=== PATIENT | male | born 1990 | race Caucasian/White ===

== ENCOUNTER 2019-11-02 13:08 | Inpatient (IN) | payer MEDICAID, SELFPAY ==
--- NOTE | ~2019-11-02 | US_ITS ---
EXAMINATION: US right upper quadrant DATE: 11/02/2019 14:49 INDICATION: Right flank pain. Right abdominal pain. TECHNIQUE: Multiple grayscale and Doppler ultrasound images of the abdomen were obtained. COMPARISON: CT abdomen and pelvis 11/02/2019 FINDINGS: The visualized portions of the head of the pancreas are normal. The liver is normal without focal lesion. There is normal flow in main portal vein. The gallbladder is contracted. No gallstones or sonographic Pagan sign. The common duct is normal and measures 5 mm. IMPRESSION: 1. Normal right upper quadrant ultrasound. Reviewed, dictated and finalized at location A.
--- NOTE | ~2019-11-02 | CT_ITS ---
EXAMINATION: CT abdomen pelvis wo con DATE: 11/02/2019 13:45 INDICATION: Right flank pain. TECHNIQUE: Computed tomography (CT) of the abdomen and pelvis was performed without intravenous contr ast. Automated exposure control and iterative reconstruction technique were employed. The dose-length product was 248.27 mGy-cm. COMPARISON: None. FINDINGS: The visualized portions of the lung bases are clear without pneumonia or pleural effusion. The heart size is normal. No pericardial effusion. The liver, gallbladder, pancreas, adrenal glands, and kidneys are normal. There is no urolithiasis. Calcifications in the spleen are consistent with ol d granulomatous disease. The appendix is normal. There are no dilated loops of bowel. There are no pa thologically enlarged lymph nodes. There is no free intraperitoneal fluid. The bones are unremarkable . IMPRESSION: 1. No etiology for the patient's symptoms. Reviewed, dictated and finalized at location A.
--- NOTE | ~2019-11-02 | US_ITS ---
EXAMINATION: US scrotum doppler DATE: 11/02/2019 14:48 INDICATION: Bilateral testicular pain. TECHNIQUE: Grayscale and Doppler ultrasound images of the testes were obtained. COMPARISON: None. FINDINGS: The right testis measures 3.8 x 2.8 x 1.7 cm. The left testis measures 4.1 x 2.9 x 1.9 cm. There is normal vascular flow to both testes. The right epididymis is normal with normal vascular marya w. The left epididymis demonstrates an 11 mm cyst. There is no varicocele or hydrocele. IMPRESSION: 1. No etiology for the patient's symptoms. Reviewed, dictated and finalized at location A.
--- NOTE | 2019-11-02 13:17 | ED.BACK ---
HPI - Back Pain/Injury General Chief Complaint: Urogenital-Male Stated Complaint: R FLANK/ABD PAIN Time Seen by Provider: 11/02/19 13:16 Source: patient Mode of arrival: ambulatory Limitations: no limitations History of Present Illness HPI Narrative: Pt is a 29 y/o male who presents to the ED with c/o lower back pain that started yesterday and rt groin pain that started today. He states that his pain is intermittent and sharp. He reports nausea and a fever 2 nights ago, and bloating, but he denies vomiting. Pt states that he felt like he was going to pass out yesterday. Pt went to the and he was Rx Meloxicam and Tamsulosin for a possible kidney stone. He denies a H/O kidney stones. Pt also denies injuring or straining his back. MD elicited complaint: back pain Onset (ago): day(s) (1) Timing: intermittent Quality: sharp Location: lumbar spine Radiation: groin (rt) Relieving factors: none Associated symptoms: fever and other (near syncope, nausea, bloating) Treatments prior to arrival: other (tamsulosin and meloxicam) Related Data Allergies Allergy/AdvReac Type Severity Reaction Status Date / Time No Known Allergies Allergy Verified 11/02/19 13:30 Review of Systems Review of Systems: All systems reviewed & are unremarkable except as noted in HPI and below Constitutional: Constitutional: Reports fever(s) Gastrointestinal: Gastrointestinal: Reports bloating, Reports nausea and Denies vomiting Genitourinary: Genitourinary: Reports other (rt groin pain) Musculoskeletal: Musculoskeletal: Reports back pain PMFSH Past Medical History Medical History (Updated 11/02/19 @ 15:11 by Nino Casas DO) No significant past medical history Surgical History Surgical History (Updated 11/02/19 @ 13:36 by Sophia Ashby) H/O right knee surgery Social History Social History (Updated 11/02/19 @ 13:36 by Sophia Ashby) Smoking status: Never smoker Gender identity (if verbalized by the patient): Male Exam Narrative: Exam Narrative: APPEARANCE: No acute distress, nontoxic, resting in bed EYES: EOMI HEENT: Normocephalic, atraumatic, OMM RESPIRATORY: No respiratory distress Clear to auscultation bilaterally with no rhonchi wheezing or rales. CARDIOVASCULAR: Regular rate and rhythm without murmurs rubs or gallops. ABDOMINAL: Soft, nondistended, tender to palpation in the right lower quadrant, no tenderness right upper quadrant, left lower quadrant left lower quadrant, no rebound or guarding, right flank tenderness : No skin lesions, no scrotal swelling or erythema, no tenderness of the bilateral testicles, no hernia palpated MUSCULOSKELETAl: Moves all extremities. No clubbing, cyanosis or edema. NEURO: Awake and alert. Following commands, speech normal, no focal deficits SKIN:: Warm, dry. No rashes lesions or abrasions PSYCHIATRIC: Normal affect/mood, Course Course Emergency Course: Discussed with patient LFTs. He states he has been to senior living twice when he initially went to senior living he was told he had hepatitis C however the second time he went to senior living he was told that was incorrect and he did not have hepatitis C. He states he has had no outpatient treating Discussed with patient and family results of workup and diagnosis. Discussed need for admission. Patient and family understand and agree to current treatment plan Consultations Consultation #1: Discussed case with Dr. Bautista, the kiln firer helper. Agrees to consult. Date: 11/02/19 Time: 14:45 Consultation #2: Discussed case with VERONICA Zuniga for the hospitalist. Accepted admission. Date: 11/02/19 Time: 14:49 MDM - Back Pain/Injury Lab Data Result diagrams: 11/02/19 13:36 11/02/19 13:36 Labs: Lab Results 11/02/19 11/02/19 11/02/19 Range/Units 13:29 13:29 13:29 WBC (4.5-10.0) K/mm3 RBC (4.6-6.20) M/mm3 Hgb (14.0-18.0) g/dL Hct (42.0-52.0) % MCV (80-100) fl MCH (26-34) pg MCHC
--- NOTE | 2019-11-02 13:35 | PC.NURSE ---
Pt refuses IV. Informed Dr. Casas of this
[2019-11-02 13:47] LABS: Basophils Absolute Auto 0.1 K/mm3 (0.0-0.1); Basophils Percent Auto 0.7 % (0.2-1.2); Eosinophils Absolute Auto 0.1 K/mm3 (0-0.3); Eosinophils Percent Auto 0.4 % (0-4.4); Hematocrit 46.2 % (42.0-52.0); Hemoglobin 15.4 g/dL (14.0-18.0); Immature Granulocyte Absolute 0.03 K/mm3 (0.00-0.031); Immature Granulocyte Percent A 0.2 % (0-0.5); Lymphocytes Absolute Auto 8.43 K/mm3 (0.9-3.2); Lymphocytes Percent Auto 69.4 % (18.3-44.2); Mean Corpuscular HGB Conc 33.3 g/dl (32-36); Mean Corpuscular Hemoglobin 28.5 pg (26-34); Mean Corpuscular Volume 85.6 fl (80-100); Mean Platelet Volume 8.7 fl (7.4-10.4); Monocytes Absolute Auto 0.8 K/mm3 (0.1-0.6); Monocytes Percent Auto 6.2 % (2.6-8.5); Neutrophils Absolute Auto 2.8 K/mm3 (1.3-6.7); Neutrophils Percent Auto 23.1 % (45.5-73.1); Platelet Count Result 189 k/mm3 (150-375); Red Cell Distribution Width 12.7 % (11.5-14.5); White Blood Count 12.1 K/mm3 (4.5-10.0)
[2019-11-02 13:50] LABS: Add Urine Microscopic? YES; Appearance Urine Clear (Clear); Bacteria Urine Trace /hpf; Bilirubin Urine Negative (Negative); Blood Urine 1+ (Negative); Color Urine Amber (Yellow); Glucose Urine UA Negative (Negative); Ketones Urine Negative (Negative); Leukocyte Esterase Ur Negative LEU/UL (Negative); Mucus Urine Rare /lpf; Nitrate Urine Negative (Negative); Protein Urine Negative (Negative); Specific Grav Ur 1.017 (1.001-1.035); WBC Urine 0-3 /hpf
[2019-11-02 13:59] LABS: Atypical Lymphocytes Present; Platelet Estimate Adequate (Adequate)
[2019-11-02 14:03] LABS: Albumin Level 3.8 g/dL (3.5-5.1); Alkaline Phosphatase 165 U/L (38-126); Bilirubin,Total 3.2 mg/dL (0.2-1.3); Blood Urea Nitrogen 15 mg/dL (9-20); Calcium 9.1 mg/dL (8.4-10.2); Carbon Dioxide 29 mmol/L (22-30); Chloride 103 mmol/L (98-107); Estimated CRCL calculation 90 ml/min; Estimated Glomerular Filt Rate > 60; Glucose 94 mg/dL (75-110); Lipase 244 U/L (23-300); Potassium 4.3 mmol/L (3.4-5.0); Sodium 136 mmol/L (137-145)
[2019-11-02 14:17] LABS: Aspartate Amino Transferase 1287 U/L (17-59)
[2019-11-02 14:25] LABS: Alanine Aminotransferase 3633 U/L (4-50)
[2019-11-02 14:40] LABS: Acetaminophen < 10 ug/mL (10-30)
[2019-11-02 14:44] LABS: Bilirubin Direct 1.4 mg/dL (0-0.3); Bilirubin Indirect 1.1 mg/dL (0-1.1)
[2019-11-02 14:57] LABS: Creatine Kinase 36 U/L (55-170)
[2019-11-02 15:00] VITALS: BP 145/92; PULSE 70; RESP 15; O2SAT 100
[2019-11-02 15:05] LABS: Monoscreen Negative (Negative); Negative Monotest Control Negative (Negative); Positive Monotest Control Positive (Positive)
[2019-11-02 15:10] LABS: INR 1.1
[2019-11-02 15:11] LABS: Partial Thromboplastin Time 31.8 SECONDS (22.3-36.8)
--- NOTE | 2019-11-02 15:30 | PM.IMHP ---
H&P: HPI History of Present Illness Chief complaint: Abdominal pain and urinary symptoms. Narrative: Chris Waller is a 29-year-old male who presented to the emergency department earlier this afternoon for evaluation of abdominal pain and urinary symptoms. He regularly uses IV methamphetamine and heroin. Not long after using methamphetamine for the last time about 4 days ago, he began to experience side effects that had never happened to him before including significant headache and flushed face, which was scary to him. Since that time, he has felt lightheaded and dizzy on standing, reports extreme fatigue, and has been having diffuse lower back aching as well as right flank pain. He has a difficult time describing that pain, but at times it sounds like a severe ache, occasionally sharp. He was seen at a local urgent care 4 nights ago and reports a temperature of 102? at that time. He also reported feelings of incomplete bladder evacuation after urinating. His urine was reportedly positive for blood but showed no evidence of infection. He was given prescriptions for tamsulosin and meloxicam and was told that he possibly had a kidney stone. Since then, he continues to have a diffuse headache, decreased appetite, severe nausea, mild shortness of breath, and feelings of racing heart. His LFTs were markedly elevated on labs drawn in emergency department, and with further questioning he does admit that he had previously been told that he had hepatitis-C however was told shortly thereafter that he did not have hepatitis-C and he had no further testing or treatment. He denies neck ache, rhinorrhea, otalgia, odynophagia, cough, vomiting, diarrhea, and dysuria. He has not noticed scleral icterus, jaundice, and denies pruritus. No new sexual partners or new tattoos. He reports using clean needles but has shared needles in the past. No recent travel or sick contacts. Review of Systems Review of Systems: Narrative: Twelve systems were reviewed with pertinent positives and negatives as per HPI. Fever up to 102? for nights ago as detailed above. Occasional sweats. Weight has remained stable. Treated for possible chlamydia 2 weeks ago, as reportedly a previous partner had chlamydia. Tested negative for HIV several months ago. He showed no symptoms of such, however. Denies acholic stools. No history of gallbladder disease. Occasional GERD for which he will take Tums. No history of peptic ulcer. He reports pretty significant anxiety. except as documented, all other systems were reviewed and are negative. [facility] Past Medical History Medical History IV drug abuse Has regularly used IV methamphetamine and heroin for many years. Tobacco use Surgical History Surgical History H/O right knee surgery Family History Family History Grandparent Stomach cancer Grandparent Hypertension Grandparent Heart attack Social History Social History (Updated 11/02/19 @ 23:37 by Gail Last PA-C) Social History: The patient lives in [place] with his girlfriend, Kely. Designates his mother, Pamela Dyson, as his surrogate decision maker and he wishes to be a full code. He has a 10-year-old son. He smokes about a pack of cigarettes per day and has for 15 years. He drinks alcohol very rarely. He uses IV methamphetamines and heroin as detailed above. Smoking packs per day: 1 Smoking cigarettes per day: 20.0 Years smoked: 15 Smoking pack-years: 15.00 Smoking status: Current every day smoker Tobacco type: cigarettes Substance use: current Substance use type: heroin and methamphetamine Other substance usage details: meth 3 days ago, heroin 10 days ago Gender identity (if verbalized by the patient): Male Spiritual care concerns: No Meds Home Medications and Allergies Home Medications Medication Instruct
[2019-11-02 16:00] VITALS: BP 134/72; PULSE 63; RESP 16; TEMP 36.7; O2SAT 98; BMI 32.0
[2019-11-02] MEDS: SODIUM CHLORIDE 0.9% IV 1,000 ML 125 ML IV CONT ×2 (16:44→23:20)
[2019-11-02] MEDS: ALPRAZOLAM 0.25 MG TABLET PO (20:45)
[2019-11-02 21:27] VITALS: BP 139/64; PULSE 71; RESP 16; TEMP 36.4; O2SAT 99
[2019-11-02 21:38] LABS: Hepatitis B Surface Antigen Negative (Negative)
[2019-11-02 21:51] LABS: HAV RESULT Negative (Negative)
[2019-11-02 21:54] LABS: Hepatitis C Virus Antibody Reactive (Negative)
[2019-11-03 00:52] LABS: Hepatitis B Core IgM Result Negative (Negative)
[2019-11-03 05:35] VITALS: BP 115/75; PULSE 67; RESP 16; TEMP 36.5; O2SAT 99
[2019-11-03 05:54] LABS: Basophils Absolute Auto 0.1 K/mm3 (0.0-0.1); Basophils Percent Auto 0.5 % (0.2-1.2); Eosinophils Absolute Auto 0.1 K/mm3 (0-0.3); Eosinophils Percent Auto 1.4 % (0-4.4); Hematocrit 42.5 % (42.0-52.0); Hemoglobin 13.9 g/dL (14.0-18.0); Immature Granulocyte Absolute 0.03 K/mm3 (0.00-0.031); Immature Granulocyte Percent A 0.3 % (0-0.5); Lymphocytes Absolute Auto 6.48 K/mm3 (0.9-3.2); Lymphocytes Percent Auto 69.6 % (18.3-44.2); Mean Corpuscular HGB Conc 32.7 g/dl (32-36); Mean Corpuscular Hemoglobin 28.2 pg (26-34); Mean Corpuscular Volume 86.2 fl (80-100); Mean Platelet Volume 9.1 fl (7.4-10.4); Monocytes Absolute Auto 0.6 K/mm3 (0.1-0.6); Monocytes Percent Auto 6.6 % (2.6-8.5); Neutrophils Percent Auto 21.6 % (45.5-73.1); Platelet Count Result 193 k/mm3 (150-375); Red Blood Count 4.93 M/mm3 (4.6-6.20); Red Cell Distribution Width 13.2 % (11.5-14.5); White Blood Count 9.3 K/mm3 (4.5-10.0)
[2019-11-03 05:55] LABS: Prothrombin Time 13.2 Seconds (11.1-14.7)
[2019-11-03 05:56] LABS: Partial Thromboplastin Time 31.1 SECONDS (22.3-36.8)
--- NOTE | 2019-11-03 06:06 | PC.NURSE ---
Per day RN 11/01: pt was bladder scanned before and after urinating right around shift change. Pt had 200 in his bladder prior to urinating and had 12 in his bladder after urinating. Will try to do again this AM.
[2019-11-03 06:32] LABS: Albumin Level 3.2 g/dL (3.5-5.1)
[2019-11-03 06:33] LABS: Alkaline Phosphatase 138 U/L (38-126); Aspartate Amino Transferase 719 U/L (17-59); Bilirubin,Total 2.3 mg/dL (0.2-1.3); Blood Urea Nitrogen 14 mg/dL (9-20); Calcium 8.4 mg/dL (8.4-10.2); Carbon Dioxide 27 mmol/L (22-30); Chloride 104 mmol/L (98-107); Estimated CRCL calculation 110 ml/min; Estimated Glomerular Filt Rate > 60; Glucose 114 mg/dL (75-110); Potassium 4.1 mmol/L (3.4-5.0); Sodium 138 mmol/L (137-145)
[2019-11-03 06:58] LABS: Alanine Aminotransferase 2461 U/L (4-50)
[2019-11-03 07:01] LABS: Platelet Estimate Adequate (Adequate)
[2019-11-03 07:02] LABS: Atypical Lymphocytes Present
[2019-11-03] MEDS: ALPRAZOLAM 0.25 MG TABLET PO ×3 (07:32→17:06)
[2019-11-03] MEDS: SODIUM CHLORIDE 0.9% IV 1,000 ML 125 ML IV CONT ×2 (07:33→15:54)
[2019-11-03 08:43] VITALS: PULSE 72; RESP 16; O2SAT 99
[2019-11-03] MEDS: BISACODYL 5 MG TABLET EC PO (08:43)
--- NOTE | 2019-11-03 11:45 | WPDGICN ---
Assessment and Plan Assessment and plan (1) Elevated LFTs: Code(s): R94.5 - Abnormal results of liver function studies Status: Acute Assessment and Plan: Elevated LFTs most suspicious for hepatitis. Repeat hepatitis serology in progress. It is possible the degree of elevation of these LFTs is related to brief episode of hypotension. Plan is to monitor LFTs closely. Laboratory workup will be obtained. Imaging does not show any obvious etiology for the elevation of liver function test. At present will allow diet continue supportive care. (2) IV drug abuse: Code(s): F19.10 - Other psychoactive substance abuse, uncomplicated Status: Acute (3) Hepatitis: Code(s): K75.9 - Inflammatory liver disease, unspecified Status: Acute GI Consult Note Consult date/time: 11/03/19 11:45 HPI: Chris Waller is a 29 year old male seen in consult at the request of the emergency room. Patient reports abdominal bloating. Right flank pain with some radiation to his testicle described. He reports having some blood in his urine within the last week. In the emergency room laboratory testing revealed profound elevation of serum transaminases. Patient's past history is significant for false positive HCV. He was found to have negative HCV on DNA polymerase testing, this was noted while incarcerated 1-1/2 years ago. Patient denies any known exposure to hepatitis. He he does have previous tattoos. He admits to heroin use. Patient denies alcohol intake. Family history is noncontributory. He denies any recent travel. He is on no medications. He states he did feel very lightheaded and weak several days ago when asked if he ever had low blood pressure. He has noticed yellow jaundice 0 of his eyes over the last 3 days. His urine has become darker. He noticed blood in his urine 3 days ago. Review of Systems Review of Systems: All systems reviewed & are unremarkable except as noted in HPI and below PMFSH Past Medical History Medical History IV drug abuse Has regularly used IV methamphetamine and heroin for many years. Tobacco use Surgical History Surgical History H/O right knee surgery Family History Family History Grandparent Stomach cancer Grandparent Hypertension Grandparent Heart attack Social History Social History (Updated 11/02/19 @ 23:37 by Gail Last PA-C) Social History: The patient lives in [place] with his girlfriend, Kely. Designates his mother, Pamela Dyson, as his surrogate decision maker and he wishes to be a full code. He has a 10-year-old son. He smokes about a pack of cigarettes per day and has for 15 years. He drinks alcohol very rarely. He uses IV methamphetamines and heroin as detailed above. Smoking packs per day: 1 Smoking cigarettes per day: 20.0 Years smoked: 15 Smoking pack-years: 15.00 Smoking status: Current every day smoker Tobacco type: cigarettes Substance use: current Substance use type: heroin and methamphetamine Other substance usage details: meth 3 days ago, heroin 10 days ago Gender identity (if verbalized by the patient): Male Spiritual care concerns: No Meds Home Medications and Allergies Home Medications Medication Instructions Recorded Confirmed Type No Home Medications 11/02/19 11/02/19 History Allergies Allergy/AdvReac Type Severity Reaction Status Date / Time No Known Allergies Allergy Verified 11/02/19 13:30 Vital Signs Vital Signs - 24 hr 11/02/19 15:00 11/02/19 16:00 11/02/19 21:27 Temperature 36.7 C 36.4 C Pulse Rate 70 63 71 Respiratory Rate 15 16 16 Blood Pressure 145/92 H 134/72 139/64 Pulse Oximetry 100 98 99 11/03/19 05:35 11/03/19 08:43 Temperature 36.5 C Pulse Rate 67 72 Respiratory Rate 16 16 Blood Pressure 115/75 Pulse Oximetry 99 99
[2019-11-03 13:58] LABS: Albumin Level 3.4 g/dL (3.5-5.1); Alkaline Phosphatase 145 U/L (38-126); Aspartate Amino Transferase 652 U/L (17-59); Bilirubin Direct 0.4 mg/dL (0-0.3); Bilirubin,Total 2.2 mg/dL (0.2-1.3)
[2019-11-03 14:00] VITALS: BP 147/72; PULSE 66; RESP 18; TEMP 36.2; O2SAT 100
[2019-11-03 14:19] LABS: Alanine Aminotransferase 2335 U/L (4-50)
--- NOTE | 2019-11-03 14:33 | PM.IMPN ---
Progress Note: A&P Assessment and Plan (1) Hepatitis: Code(s): K75.9 - Inflammatory liver disease, unspecified Status: Acute Assessment and Plan: Hepatitis C ab reactive. Additional serologies pending, but he has previously been told he had hepatitis-C but then was told he did not have it. LFTs improving this afternoon. Bili improving as well. For now he will receive supportive care with IV fluid rehydration and antiemetics as needed. Dr. Bautista following, and his input is appreciated. Will await further recommendations per Dr. Bautista (2) IV drug abuse: Code(s): F19.10 - Other psychoactive substance abuse, uncomplicated Status: Acute Assessment and Plan: Patient admits to regularly using IV methamphetamine and heroin. He last use several nights ago. He is somewhat anxious at this time, and Xanax will be available as needed. CC following and will provide resources for cessation of drug abuse (3) Tobacco use: Code(s): Z72.0 - Tobacco use Status: Acute Assessment and Plan: Nicotine patch available if needed. Subjective Date/time seen: 11/03/19 14:33 Interval history: Patient is a 29 yo M with history of IV methamphetamine and heroin use who is here for evaluation for elevated LFTs and suspected hepatitis. Patient is feeling better today although still having some dizziness while standing. He states this happened a couple nights ago that alarmed him as well. He recently started Tamsulosin started by an for possible renal stone, but starting having these symptoms shortly after; he has since stopped taking this medication. He reports dark urine. He has no other complaints at this moment. Upon further questioning, denies f/c/ns, headaches, dizziness, lightheadedness, changes in v/h, cp/palpitations, sob/cough, current n/v/d/c, abd pain, dysphagia, melena, brbpr, dysuria, hematuria, cloudy urine, calf pain/swelling, s/sx of stroke Review of Systems Review of Systems: All systems reviewed & are unremarkable except as noted in HPI and below Exam Narrative: Exam Narrative: Patient sitting upright in chair at time of visit; SO in room visiting Const: General: cooperative, healthy appearing, comfortable, no acute distress, well developed and alert Nutritional Appearance: well nourished Orientation/consciousness: patient oriented x3 HENMT: Head: normocephalic and atraumatic General nose exam: Normal nares present Face and sinus: face symmetric Mouth: Yes lip normal and Yes moist mucous membranes Eyes: General: appearance normal, both eyes and all related structures Sclera: scleral abnormality bilateral other (mild icterus) Pupils: Equal, round and reactive pupils present EOM: EOMs intact bilaterally Neck: Neck: trachea midline and supple Resp: Effort & Inspection: normal respiratory effort Auscultation: clear to auscultation bilaterally Cardio: Rate: regular rate Rhythm: regular rhythm Heart sounds: no murmurs GI: GI Palp: No abdominal tenderness, Yes Soft to palpation and Yes No hepatosplenomegaly present Auscultation: normal bowel sounds and normoactive bowel sounds Skin: General skin exam: normal color and no rashes or lesions noted Neuro: General: tone normal, moves all extremities and no focal motor deficits Speech: normal speech Motor exam (neuro): 5/5 motor strength present throughout Extrem: Right lower extremity: no edema Left lower extremity: no edema Other: NTTP b/l calves Psych: Mental Status: mental status grossly normal Affect: normal affect Objective Data Vital Signs Vital Signs: Vital Signs - 24 hr 11/02/19 15:00 11/02/19 16:00 11/02/19 21:27 Temperature 98.1 F 97.6 F Pulse Rate 70 63 71 Respiratory Rate 15 16 16 Blood Pressure 145/92 H 134/72 139/64 Pulse Oximetry 100 98 99 11/03/19 05:35 11/03/19 08:43 Temperat
[2019-11-03 15:08] VITALS: BP 130/72; BP 131/74
[2019-11-03 15:09] VITALS: BP 113/61
[2019-11-03 20:27] VITALS: BP 144/72; PULSE 94; RESP 16; TEMP 36.2; O2SAT 100
[2019-11-03] MEDS: LORAZEPAM INJ 2 MG/ML VIAL 0.5 MG IV PUSH (21:18)
[2019-11-04] MEDS: SODIUM CHLORIDE 0.9% IV 1,000 ML 75 ML IV CONT (02:19)
[2019-11-04 05:05] VITALS: BP 124/54; PULSE 73; RESP 16; TEMP 36.5; O2SAT 98
[2019-11-04 06:20] LABS: Hematocrit 41.9 % (42.0-52.0); Hemoglobin 13.8 g/dL (14.0-18.0); Mean Corpuscular HGB Conc 32.9 g/dl (32-36); Mean Corpuscular Hemoglobin 28.3 pg (26-34); Mean Platelet Volume 9.3 fl (7.4-10.4); Platelet Count Result 181 k/mm3 (150-375); Red Blood Count 4.87 M/mm3 (4.6-6.20); Red Cell Distribution Width 13.1 % (11.5-14.5)
[2019-11-04 06:59] LABS: Albumin Level 3.2 g/dL (3.5-5.1); Alkaline Phosphatase 128 U/L (38-126); Aspartate Amino Transferase 346 U/L (17-59); Bilirubin,Total 1.1 mg/dL (0.2-1.3); Blood Urea Nitrogen 15 mg/dL (9-20); Calcium 8.7 mg/dL (8.4-10.2); Carbon Dioxide 24 mmol/L (22-30); Chloride 105 mmol/L (98-107); Estimated CRCL calculation 122 ml/min; Estimated Glomerular Filt Rate > 60; Glucose 134 mg/dL (75-110); Sodium 135 mmol/L (137-145)
[2019-11-04 07:02] LABS: Alanine Aminotransferase 1671 U/L (4-50)
[2019-11-04] MEDS: LORAZEPAM INJ 2 MG/ML VIAL 0.5 MG IV PUSH (07:58)
[2019-11-04 08:02] VITALS: RESP 16; O2SAT 98
[2019-11-04] MEDS: ALPRAZOLAM 0.25 MG TABLET PO (09:03)
--- NOTE | 2019-11-04 11:10 | WPDGIPROGNO ---
Progress Note: A&P Additional Plan Patient comfortable this morning. He feels back to baseline. No longer with abdominal bloating. Physical exam reveals mild scleral icterus. Lungs are clear. Heart is without murmur. Abdomen is soft and nontender. No organomegaly evident. Extremities reveal tattoos. Labs reveal HCV RIBA screen positive. This could be false positive. Await HCV RNA polymerase results. Additional lab work to search for etiology of elevated LFTs pending. Transaminases remain quite elevated.. This could be from episode of hypotension. Plan is to follow up LFTs as outpatient. If LFTs remain elevated for extended course liver biopsy may be required. Patient is to abstain from IV drugs. Anticipate follow-up in my office in 3-4 weeks with LFTs prior to visit. Subjective Date/time seen: 11/04/19 11:10 Objective Data Vital Signs Vital Signs: Vital Signs - 24 hr 11/03/19 14:00 11/03/19 15:08 11/03/19 15:09 Temperature 36.2 C L Pulse Rate 66 Respiratory Rate 18 Blood Pressure 147/72 H 130/72 113/61 Pulse Oximetry 100 11/03/19 20:27 11/04/19 05:05 11/04/19 08:02 Temperature 36.2 C L 36.5 C Pulse Rate 94 73 Respiratory Rate 16 16 16 Blood Pressure 144/72 H 124/54 L Pulse Oximetry 100 98 98 Intake/Output Intake/Output: Intake & Output 11/01/19 11/02/19 11/03/19 11/04/19 23:59 23:59 23:59 23:59 Intake Total 1240 4940 1790 Output Total 1800 800 Balance 1240 3140 990 Meds/Results Medications: Active Medications Generic Name Dose Route Start Last Admin Trade Name Freq PRN Reason Stop Dose Admin Alprazolam 0.25 mg 11/03/19 17:00 11/04/19 09:03 Xanax PO 0.25 mg TID CAT Administration Sodium Chloride 1,000 mls @ 75 mls/hr 11/02/19 15:05 11/04/19 02:19 Normal Saline Iv IV CONT 75 mls/hr .[id number] CAT Administration Lorazepam 0.5 mg 11/03/19 16:03 11/04/19 07:58 Ativan Inj IV PUSH 0.5 mg Q6H PRN Administration Anxiety Radiology Results: ITS Impressions Abdomen/Pelvis CT 11/02/19 13:49 IMPRESSION: 1. No etiology for the patient's symptoms. Scrotum Ultrasound 11/02/19 14:51 IMPRESSION: 1. No etiology for the patient's symptoms. Upper Quadrant Ultrasound 11/02/19 14:53 IMPRESSION: 1. Normal right upper quadrant ultrasound. Labs Labs: Laboratory Results - last 24 hr 11/02/19 11/03/19 11/03/19 20:48 13:21 13:21 WBC RBC Hgb Hct MCV MCH MCHC RDW Plt Count MPV Sodium Potassium Chloride Carbon Dioxide BUN Creatinine Estim Creat Clear Calc Estimated GFR Glucose Calcium Ferritin 108.00 Total Bilirubin 2.2 H Direct Bilirubin 0.4 H AST 652 H ALT 2335 H Alkaline Phosphatase 145 H Total Protein 7.0 Albumin 3.4 L HCV RNA (PCR) IUs/ml Cancelled HCV RNA PCR log IUs/ml Cancelled 11/04/19 11/04/19 05:35 05:35 WBC 8.0 RBC 4.87 Hgb 13.8 L Hct 41.9 L MCV 86.0 MCH 28.3 MCHC 32.9 RDW 13.1 Plt Count 181 MPV 9.3 Sodium 135 L Potassium 4.0 Chloride 105 Carbon Dioxide 24 BUN 15 Creatinine 0.90 Estim Creat Clear Calc 122 Estimated GFR > 60 Glucose 134 H Calcium 8.7 Ferritin Total Bilirubin 1.1 Direct Bilirubin 0.0 AST 346 H ALT 1671 H Alkaline Phosphatase 128 H Total Protein 7.0 Albumin 3.2 L HCV RNA (PCR) IUs/ml HCV RNA PCR log IUs/ml
--- NOTE | 2019-11-04 13:34 | PM.DS ---
DS: Diagnosis Admitting Diagnosis Admitting Diagnosis: Inflammatory liver disease, unspecified Discharge Diagnosis (1) Hepatitis: Code(s): K75.9 - Inflammatory liver disease, unspecified Status: Acute Assessment and Plan: Hepatitis C ab reactive. Additional serologies pending, but he has previously been told he had hepatitis-C but then was told he did not have it. LFTs improving again today. Bili improving WNL today. Okay from discharge from GI standpoint Dr. Bautista following, and his input is appreciated. Will discharge today and have patient follow up with Dr. Bautista in 2 weeks from discharge per his recommendations Hepatic panel in 1 week with results to Dr. Bautista (2) IV drug abuse: Code(s): F19.10 - Other psychoactive substance abuse, uncomplicated Status: Acute Assessment and Plan: Patient admits to regularly using IV methamphetamine and heroin. Patient not showing any signs of withdrawal at this time; no confusion, anxiety, tremors, etc. He states he already contacted [facility] for further treatment. He states he has stopped opioid use and is trying to get clean from methamphetamine use. He last use was 4 days ago per patient Low dose Xanax during stay and additional Ativan yesterday. Recommend following up with [facility] tomorrow Establish with a PCP as well [facility] following and provided resources for cessation of drug abuse (3) Tobacco use: Code(s): Z72.0 - Tobacco use Status: Acute Assessment and Plan: Nicotine patch available if needed. DS: Summary Hospital Course Reason for hospitalization: Abdominal pain/urinary symptoms; Hepatitis, elevated LFTs Hospital Course: Patient is a 29 yo M with history of IV substance abuse who presented to the ER on 11/01 for evaluation of abdominal pain and urinary symptoms. He started having side effects from using methamphetamine 4 days prior were he had headache, flushed face; he then had lightheadedness and dizziness on standing and extreme fatigue since that time. He had lower back pain and right flank pain. He was seen at an urgent care 4 nights prior and had a 102 temp and had a UA positive for blood; he was given tamsulosin and meloxicam as he was told he possible had a kidney stone. Upon arrival to ED he had markedly elevated LFTs. He had been previously told he had hepatitis C but then was told he did not have this shortly thereafter. He had shared needles in the past. See H&P for further details. Presenting VS: BP 145/92, HR 70, RR 15, temp 98.1, sat 100% RA Presenting Pertinent labs: WBC 12.1 (11/03 8.0), direct bili 1.4, indirect bili 1.1, tbili 3.2, AST 1287, ALT 3633, alk phos 165, CK 36, lipase 244. UA showed 1+ blood, 2 urobilinogen, 3-5 RBC. Negative acetaminophen tox screen. Initial hepatitis panel showed reactive hepatitis c ab; all other screens negative. Monoscreen negative. HCV RNA PCR, VICENTA, mitochondria M2 IgG, alpha -1-AT phenotype, and ceruloplasmin pending. CBC, CMP, UA, coags otherwise unremarkable Micro: none Imagin/10 abd/pelvis CT IMPRESSION: 1. No etiology for the patient's symptoms. 11/01 scrotum US IMPRESSION: 1. No etiology for the patient's symptoms. 11/01 RUQ US IMPRESSION: 1. Normal right upper quadrant ultrasound. ECG: none Patient was admitted to the hospitalist service for further evaluation for elevated LFTs supsicious for likely hepatitis and elevated LFTs; Dr. Bautista (GI) was consulted for further input/management. Patient was started on IVF during stay. LFTs trended down during stay; he was to get a CMP in 1 week from discharge for further follow up on his LFT values. Hepatitis serology and other lab work up was performed; this was to be followed by GI after discharged. Imaging was grossly unremarkable for any etiology for his elevated LFTs. Patient was to follow up with GI
[2019-11-05 19:59] LABS: Hepatitis C RNA, Quant PCR 1830 IU/mL
[2019-11-07 03:52] LABS: Ceruloplasmin 34 mg/dL (18-36)
[2019-11-07 12:08] LABS: Mitochondrial (M2) Ab (IgG) <=20.0 U (<=20.0)
== END 2019-11-04 14:20 | disposition home or self-care (01) ==
LOC: ANHED 15:11 → ANH3MED 15:42
PROVIDERS: Internal Medicine Gastroenterology; Physician Assistant; Admitting Provider Hospitalist; Emergency Provider Emergency Medicine; Visit Provider Family Medicine
DX: K75.9 Inflammatory liver disease, unspecified (principal); F15.10 Other stimulant abuse, uncomplicated; F11.10 Opioid abuse, uncomplicated
CPT/HCPCS: 36415; 74176; 76705; 76870; 80053; 80074; 80076; 80307; 81001; 82103; 82248; 82390; 82550; 82728; 83520; 83690; 85025; 85027; 85610; 85730; 86038; 86308; 87522; 93976; 99285; A9270; J2060; J7030

== ENCOUNTER 2020-01-18 15:01 | Emergency (ER) | payer MEDICAID, SELFPAY ==
--- NOTE | 2020-01-18 15:04 | ECG_ITS ---
Measurements Intervals [place] Rate: 115 P: 69 [place]: 147 QRS: -10 QRSD: 96 T: 47 QT: 309 QTc: 428 Interpretive Statements SINUS TACHYCARDIA POSSIBLE LEFT ATRIAL ENLARGEMENT INCOMPLETE RIGHT BUNDLE BRANCH BLOCK BASELINE WANDER- I, II ABNORMAL ECG Electronically Signed On 01-18-2020 15:44:25 CDT by Brant Reynolds D.O.
[2020-01-18 15:05] VITALS: BP 133/98; PULSE 125; RESP 18; TEMP 36.3; O2SAT 100
[2020-01-18 15:18] VITALS: BP 180/91; PULSE 115; RESP 25; O2SAT 100
[2020-01-18 15:36] LABS: Basophils Absolute Auto 0.1 K/mm3 (0.0-0.1); Basophils Percent Auto 0.4 % (0.2-1.2); Eosinophils Absolute Auto 0.1 K/mm3 (0-0.3); Hematocrit 48.2 % (42.0-52.0); Immature Granulocyte Absolute 0.06 K/mm3 (0.00-0.031); Immature Granulocyte Percent A 0.5 % (0-0.5); Lymphocytes Percent Auto 28.4 % (18.3-44.2); Mean Corpuscular HGB Conc 33.2 g/dl (32-36); Mean Corpuscular Hemoglobin 28.1 pg (26-34); Mean Corpuscular Volume 84.7 fl (80-100); Monocytes Absolute Auto 1.1 K/mm3 (0.1-0.6); Monocytes Percent Auto 8.6 % (2.6-8.5); Neutrophils Absolute Auto 7.7 K/mm3 (1.3-6.7); Neutrophils Percent Auto 61.1 % (45.5-73.1); Platelet Count Result 259 k/mm3 (150-375); Red Blood Count 5.69 M/mm3 (4.6-6.20); Red Cell Distribution Width 13.4 % (11.5-14.5); White Blood Count 12.7 K/mm3 (4.5-10.0)
[2020-01-18 16:13] VITALS: BP 138/112; BP 139/75; PULSE 90; PULSE 96
[2020-01-18 16:14] VITALS: BP 100/86; PULSE 106
[2020-01-18 16:22] LABS: Blood Urea Nitrogen 15 mg/dL (9-20); Calcium 9.5 mg/dL (8.4-10.2); Carbon Dioxide 30 mmol/L (22-30); Chloride 101 mmol/L (98-107); Estimated CRCL calculation 107 ml/min; Estimated Glomerular Filt Rate > 60; Glucose 99 mg/dL (75-110); Potassium 4.3 mmol/L (3.4-5.0); Sodium 137 mmol/L (137-145)
--- NOTE | 2020-01-18 16:31 | ED.GENADULT ---
HPI - General Adult General Chief complaint: Dizziness Stated complaint: DIZZY, FAINTING, ELEVATED LFT'S Time Seen by Provider: 01/18/20 15:12 Source: patient and family Mode of arrival: ambulatory Limitations: no limitations History of Present Illness HPI narrative: Patient is 29 years old white male complaining of dizziness, tiredness, trouble sleeping, hot and cold feeling for months, got worse over the last 3 to 4 days. He was detoxed at [facility] on January 09, currently Suboxone. History of smoking, and drug abuse include marijuana, fentanyl and heroin. Last heroin use was earlier today. Related Data Home Medications Medication Instructions Recorded Confirmed No Home Medications 11/02/19 11/02/19 Allergies Allergy/AdvReac Type Severity Reaction Status Date / Time No Known Allergies Allergy Verified 01/18/20 15:07 Review of Systems Review of Systems: Narrative: CONSTITUTIONAL: Denies fever, chills, or sweats. EYES: Denies visual changes, redness, or discharge. ENT: Denies rhinorrhea, congestion, sore throat, or otalgia. CARDIOVASCULAR: Denies chest pain, palpitations, or edema. RESPIRATORY: Denies cough or dyspnea. GASTROINTESTINAL: Denies abdominal pain, nausea, vomiting, or diarrhea. GENITOURINARY: Denies dysuria or hematuria. SKIN: Denies rash or itching. MUSCULOSKELETAL: Denies back pain, joint pain, or myalgia. NEUROLOGIC: Denies headache, numbness, or weakness. PSYCHIATRIC: Denies anxiety or depression. PMFSH Past Medical History Medical History IV drug abuse Has regularly used IV methamphetamine and heroin for many years. Tobacco use Surgical History Surgical History H/O right knee surgery Family History Family History Grandparent Stomach cancer Grandparent Hypertension Grandparent Heart attack Social History Social History Social History: The patient lives in [place] with his girlfriend, Kely. Designates his mother, Pamela Dyson, as his surrogate decision maker and he wishes to be a full code. He has a 10-year-old son. He smokes about a pack of cigarettes per day and has for 15 years. He drinks alcohol very rarely. He uses IV methamphetamines and heroin as detailed above. Smoking packs per day: 1 Smoking cigarettes per day: 20.0 Years smoked: 15 Smoking pack-years: 15.00 Smoking status: Current every day smoker Tobacco type: cigarettes Substance use: current Substance use type: heroin and methamphetamine Other substance usage details: meth 3 days ago, heroin 10 days ago Gender identity (if verbalized by the patient): Male Spiritual care concerns: No Exam Narrative: Exam Narrative: General appearance: Well-developed, well-nourished, restless, girlfriend at the bedside Skin: Normal color Head: Normocephalic, nontraumatic Eyes: Clear conjunctiva ENT: Oropharynx normal, ears normal, nose normal Neck: Supple, nontender Chest and respiratory: Airway patent, no respiratory distress, no accessory muscle use Heart: Regular rate/rhythm Abdomen: Soft, nontender, no organomegaly, quiet bowel sounds Vascular: Normal peripheral pulses, normal capillary refill. Musculoskeletal: Normal range of motion, nontender back Neurologic: Alert and oriented ?3, COMMODITY SUPERVISOR is normal as tested, no gross motor deficit Course Course Emergency Course: Unchanged Vital Signs Vital signs: Vital Signs Temperature 36.3 C L 01/18/20 15:05 Pulse Rate 125 H 01/18/20 15:05 Respiratory Rate 18 01/18/20 15:05 Blood Pressure 133/98 H 01/17
[2020-01-18] MEDS: SODIUM CHLORIDE 0.9% IV 1,000 ML 999 ML IV CONT (16:40)
[2020-01-18 18:27] LABS: Amphetamine Screen Urine Negative (Negative); Barbiturate Screen Urine Negative (Negative); Benzodiazepines Screen Urine Negative (Negative); Cannabinoid Screen Urine Positive (Negative); Cocaine Screen Urine Negative (Negative); Methadone Screen Urine Negative (Negative); Opiate Screen Urine Negative (Negative); Phencyclidine Screen Urine Negative (Negative)
[2020-01-18 18:31] VITALS: BP 132/87; PULSE 80; RESP 18; O2SAT 98
== END 2020-01-18 18:32 | disposition home or self-care (01) ==
PROVIDERS: Emergency Provider Emergency Medicine
DX: F41.9 Anxiety disorder, unspecified (principal); F19.20 Other psychoactive substance dependence, uncomplicated; F17.210 Nicotine dependence, cigarettes, uncomplicated
CPT/HCPCS: 36415; 80048; 80307; 85025; 93005; 96360; 99284; J7030

== ENCOUNTER 2020-01-24 13:11 | Outpatient (CLI) | payer MEDICAID, SELFPAY ==
--- NOTE | ~2020-01-24 | XR_ITS ---
EXAMINATION: XR chest 2V EXAM DATE: 01/24/2020 14:11 INDICATION: Cough. TECHNIQUE: Frontal and lateral projections of the chest obtained and reviewed. Comparison is made to prior examination from 04/29/2011. FINDINGS: The lungs are clear. There are no pleural effusions. The cardiomediastinal silhouette is within normal limits. There is no pneumothorax suspected. The bones and soft tissues are unremarkab le. IMPRESSION: No acute cardiopulmonary findings. Reviewed, dictated and finalized at location A.
[2020-01-24 14:39] LABS: Hematocrit 40.6 % (42.0-52.0); Hemoglobin 13.2 g/dL (14.0-18.0); Mean Corpuscular HGB Conc 32.5 g/dl (32-36); Mean Corpuscular Hemoglobin 27.8 pg (26-34); Mean Corpuscular Volume 85.5 fl (80-100); Mean Platelet Volume 8.6 fl (7.4-10.4); Platelet Count Result 224 k/mm3 (150-375); Red Blood Count 4.75 M/mm3 (4.6-6.20); Red Cell Distribution Width 13.7 % (11.5-14.5); White Blood Count 9.2 K/mm3 (4.5-10.0)
[2020-01-24 14:54] LABS: Alanine Aminotransferase 28 U/L (4-50); Albumin Level 4.2 g/dL (3.5-5.1); Alkaline Phosphatase 61 U/L (38-126); Aspartate Amino Transferase 32 U/L (17-59); Bilirubin,Total 0.5 mg/dL (0.2-1.3); Blood Urea Nitrogen 19 mg/dL (9-20); Calcium 9.3 mg/dL (8.4-10.2); Carbon Dioxide 30 mmol/L (22-30); Chloride 101 mmol/L (98-107); Cholesterol 175 mg/dL (0-200); Creatine Kinase 91 U/L (55-170); Estimated Glomerular Filt Rate > 60; Glucose 68 mg/dL (75-110); HDL Direct 73 mg/dL; Potassium 4.1 mmol/L (3.4-5.0); Sodium 138 mmol/L (137-145); Triglycerides 45 mg/dL (<150)
[2020-01-24 15:05] LABS: LDL Cholesterol Direct 88 mg/dL
[2020-01-24 15:05] LABS: Add Urine Microscopic? NO; Appearance Urine Clear (Clear); Bilirubin Urine Negative (Negative); Blood Urine Negative (Negative); Color Urine Straw (Yellow); Glucose Urine UA Negative (Negative); Ketones Urine Negative (Negative); Leukocyte Esterase Ur Negative LEU/UL (NEGATIVE); Nitrate Urine Negative (Negative); Protein Urine Negative (Negative); Urobilinogen Urine Negative mg/dL (<2.0)
[2020-01-24 15:20] LABS: Hepatitis B Surface Antigen Negative (Negative)
[2020-01-24 15:26] LABS: HAV RESULT Negative (Negative); Hepatitis B Core IgM Result Negative (Negative)
[2020-01-24 15:37] LABS: Free T4 Free Thyroxine 1.13 ng/mL (0.78-2.19)
[2020-01-24 16:10] LABS: HIV 1/2 Ab P24 Ag Result Negative (Negative); Hepatitis C Virus Antibody Reactive (Negative)
[2020-01-25 10:37] LABS: Rapid Plasma Reagin Non-Reactive (NonReactive)
[2020-02-01 14:58] LABS: Hepatitis C RNA, Quant PCR <15 IU/mL
== END 2020-01-24 13:12 | disposition home or self-care (01) ==
PROVIDERS: PCP Emergency Medicine; Visit Provider Emergency Medicine
DX: D72.829 Elevated white blood cell count, unspecified (principal); R34 Anuria and oliguria
CPT/HCPCS: 36415; 71046; 80053; 80061; 80074; 81003; 82550; 84439; 84443; 85027; 86592; 86703; 87491; 87522; 87591; G0432

== ENCOUNTER 2020-04-13 14:00 | Outpatient (CLI) | payer OTHER, SELFPAY ==
[2020-04-13 14:16] LABS: Basophils Percent Auto 0.3 % (0.2-1.2); Eosinophils Absolute Auto 0.1 K/mm3 (0-0.3); Eosinophils Percent Auto 0.8 % (0-4.4); Hematocrit 39.1 % (42.0-52.0); Hemoglobin 12.8 g/dL (14.0-18.0); Immature Granulocyte Absolute 0.02 K/mm3 (0.00-0.031); Immature Granulocyte Percent A 0.2 % (0-0.5); Lymphocytes Absolute Auto 2.66 K/mm3 (0.9-3.2); Lymphocytes Percent Auto 26.3 % (18.3-44.2); Mean Corpuscular HGB Conc 32.7 g/dl (32-36); Mean Corpuscular Volume 82.5 fl (80-100); Mean Platelet Volume 8.3 fl (7.4-10.4); Monocytes Absolute Auto 0.7 K/mm3 (0.1-0.6); Monocytes Percent Auto 7.1 % (2.6-8.5); Neutrophils Absolute Auto 6.6 K/mm3 (1.3-6.7); Neutrophils Percent Auto 65.3 % (45.5-73.1); Platelet Count Result 266 k/mm3 (150-375); Red Blood Count 4.74 M/mm3 (4.6-6.20); Red Cell Distribution Width 13.4 % (11.5-14.5); White Blood Count 10.1 K/mm3 (4.5-10.0)
[2020-04-13 15:43] LABS: Alanine Aminotransferase 18 U/L (4-50); Albumin Level 4.3 g/dL (3.5-5.1); Alkaline Phosphatase 72 U/L (38-126); Anion Gap 9 mmol/L (8-16); Aspartate Amino Transferase 28 U/L (17-59); Bilirubin,Total 0.3 mg/dL (0.2-1.3); Blood Urea Nitrogen 17 mg/dL (9-20); Calcium 9.6 mg/dL (8.4-10.2); Carbon Dioxide 29 mmol/L (22-30); Chloride 101 mmol/L (98-107); Estimated Glomerular Filt Rate > 60; Glucose 88 mg/dL (75-110); Lactate Dehydrogenase 416 U/L (313-618); Potassium 4.6 mmol/L (3.4-5.0); Sodium 139 mmol/L (137-145)
[2020-04-13 16:16] LABS: Iron 47 ug/dL (49-181); Percent Iron Saturation 12 % (20-50)
[2020-04-13 16:45] LABS: Folic Acid 10.9 ng/mL (2.76->20)
[2020-04-18 08:53] LABS: Methylmalonic Acid 126 nmol/L (87-318)
[2020-04-19 11:20] LABS: Testosterone Free 45.1 pg/mL (35.0-155.0); Testosterone Total 334 ng/dL (250-1100)
== END 2020-04-13 14:01 | disposition home or self-care (01) ==
LOC: ANHLAB 14:01
PROVIDERS: PCP Emergency Medicine; Visit Provider Internal Medicine Hematology & Oncology
DX: D64.9 Anemia, unspecified (principal)
CPT/HCPCS: 36415; 80053; 82607; 82728; 82746; 83540; 83550; 83615; 83921; 84402; 84403; 84443; 85025

== ENCOUNTER 2020-07-18 13:32 | Outpatient (CLI) | payer OTHER, SELFPAY ==
[2020-07-18 13:48] LABS: Basophils Percent Auto 0.2 % (0.2-1.2); Eosinophils Absolute Auto 0.1 K/mm3 (0-0.3); Eosinophils Percent Auto 0.6 % (0-4.4); Hematocrit 39.8 % (42.0-52.0); Hemoglobin 13.1 g/dL (14.0-18.0); Immature Granulocyte Absolute 0.02 K/mm3 (0.00-0.031); Immature Granulocyte Percent A 0.2 % (0-0.5); Lymphocytes Absolute Auto 2.62 K/mm3 (0.9-3.2); Lymphocytes Percent Auto 31.8 % (18.3-44.2); Mean Corpuscular HGB Conc 32.9 g/dl (32-36); Mean Corpuscular Hemoglobin 27.8 pg (26-34); Mean Corpuscular Volume 84.5 fl (80-100); Mean Platelet Volume 8.2 fl (7.4-10.4); Monocytes Absolute Auto 0.7 K/mm3 (0.1-0.6); Monocytes Percent Auto 8.4 % (2.6-8.5); Neutrophils Absolute Auto 4.8 K/mm3 (1.3-6.7); Neutrophils Percent Auto 58.8 % (45.5-73.1); Platelet Count Result 233 k/mm3 (150-375); Red Blood Count 4.71 M/mm3 (4.6-6.20); Red Cell Distribution Width 13.7 % (11.5-14.5); White Blood Count 8.2 K/mm3 (4.5-10.0)
[2020-07-18 13:55] LABS: Blood Urea Nitrogen 14 mg/dL (8-26); Carbon Dioxide 30 mmol/L (22-30); Chloride 98 mmol/L (98-109); Estimated Glomerular Filt Rate > 60; Glucose 125 mg/dL (70-105); Sodium 138 mmol/L (138-146)
== END 2020-07-18 13:33 | disposition home or self-care (01) ==
PROVIDERS: PCP Emergency Medicine; Visit Provider Internal Medicine Hematology & Oncology
DX: D64.9 Anemia, unspecified (principal); D50.9 Iron deficiency anemia, unspecified
CPT/HCPCS: 36415; 80048; 85025

== ENCOUNTER 2021-05-15 19:55 | Inpatient (IN) | payer OTHER, SELFPAY ==
--- NOTE | ~2021-05-15 | XR_ITS ---
EXAMINATION: XR chest 2V DATE: 05/15/2021 20:26 INDICATION: Shortness of breath. Bilateral leg swelling. Abscess. TECHNIQUE: PA and lateral views of the chest were obtained. COMPARISON: Chest radiograph dated 01/24/2020 FINDINGS: Subtle airspace opacity in the anterior segment of the left upper lobe. Small left pleural effusion. Right lung is clear with no pleural effusion. No pneumothorax. The cardiomediastinal silhouette is no rmal. Visualized bones and soft tissues are unremarkable. IMPRESSION: 1. Opacities in the anterior segment of the left upper lobe concerning for pneumonia. 2. Small left pleural effusion. Reviewed, dictated and finalized at location A. IMPRESSION: 1. Opacities in the anterior segment of the left upper lobe concerning for pneu monia. 2. Small left pleural effusion.
--- NOTE | ~2021-05-15 | CT_ITS ---
EXAMINATION: CTA chest PE protocol DATE: 05/15/2021 23:36 INDICATION: Chest pain and shortness of breath. TECHNIQUE: Computed tomography (CT) pulmonary angiogram of the chest was performed with 100 mL Omnipa que-350 intravenous contrast. Additional 3D reconstructions utilizing coronal maximum intensity proje ction (MIP) were performed. Automated exposure control and iterative reconstruction technique were em ployed. The dose-length product was 1024.86 mGy-cm. COMPARISON: None FINDINGS: Good contrast opacification of the pulmonary arteries. There is moderate streak artifact from dense c ontrast in the superior vena cava and right atrium. Mild scattered respiratory motion artifact which does not significantly limit evaluation. No pulmonary embolism. Small bilateral pleural effusions wit h dependent compressive atelectasis in the basal aspect of the lower lobes. Persistent smooth septal line thickening at the lower lungs consistent with mild pulmonary edema. Patchy groundglass opacities in the bilateral upper lobes and minimally in the superior segment of the right lower lobe. Heart si ze is normal. No pericardial effusion. Mildly enlarged bilateral hilar lymph nodes which are likely r eactive. There are also calcified mediastinal and bilateral hilar lymph nodes consistent with old gra nulomatous disease. Thoracic aorta is normal in caliber with no dissection. Visualized upper abdomen is unremarkable. Moderate arthrosis at the sternomanubrial articulation. IMPRESSION: 1. No pulmonary embolism. 2. Patchy bilateral patchy groundglass opacities in the bilateral upper lobes and superior segment of the right lower lobe with differential including pneumonia, hypersensitivity pneumonitis or pulmonar y edema. 3. Mild interstitial pulmonary edema at the lung bases and small bilateral pleural effusions. Reviewed, dictated and finalized at location A. IMPRESSION: 1. No pulmonary embolism. 2. Patchy bilateral patchy groundglass opacities in the bilateral upper lobes a nd superior segment of the right lower lobe with differential including pneumon ia, hypersensitivity pneumonitis or pulmonary edema. 3. Mild interstitial pulmonary edema at the lung bases and small bilateral pleu ral effusions.
--- NOTE | 2021-05-15 20:04 | ECG_ITS ---
Measurements Intervals [place] Rate: 62 P: 47 MS: 161 QRS: 24 QRSD: 95 T: 40 QT: 422 QTc: 429 Interpretive Statements SINUS RHYTHM WITH SINUS ARRHYTHMIA NORMAL ECG Electronically Signed On 05-15-2021 20:22:45 CDT by Brant Reynolds D.O.
[2021-05-15 20:05] VITALS: BP 158/99; PULSE 81; RESP 18; TEMP 36.8; O2SAT 98
[2021-05-15 20:23] LABS: Basophils Absolute Auto 0.1 K/mm3 (0.0-0.1); Basophils Percent Auto 0.6 % (0.2-1.2); Eosinophils Absolute Auto 0.2 K/mm3 (0-0.3); Eosinophils Percent Auto 1.5 % (0-4.4); Hematocrit 34.5 % (42.0-52.0); Hemoglobin 11.2 g/dL (14.0-18.0); Immature Granulocyte Absolute 0.02 K/mm3 (0.00-0.031); Immature Granulocyte Percent A 0.2 % (0-0.5); Lymphocytes Absolute Auto 2.78 K/mm3 (0.9-3.2); Mean Corpuscular HGB Conc 32.5 g/dl (32-36); Mean Corpuscular Hemoglobin 27.5 pg (26-34); Mean Corpuscular Volume 84.6 fl (80-100); Mean Platelet Volume 8.7 fl (7.4-10.4); Monocytes Percent Auto 9.7 % (2.6-8.5); Neutrophils Absolute Auto 6.6 K/mm3 (1.3-6.7); Platelet Count Result 240 k/mm3 (150-375); Red Blood Count 4.08 M/mm3 (4.6-6.20); Red Cell Distribution Width 13.8 % (11.5-14.5); White Blood Count 10.7 K/mm3 (4.5-10.0)
[2021-05-15 20:33] LABS: Anion Gap 6 mmol/L (8-16); Blood Urea Nitrogen 30 mg/dL (9-20); Calcium 8.6 mg/dL (8.4-10.2); Carbon Dioxide 25 mmol/L (22-30); Chloride 106 mmol/L (98-107); Estimated CRCL calculation 91 ml/min; Estimated Glomerular Filt Rate > 60; Glucose 90 mg/dL (65-110); Potassium 5.2 mmol/L (3.4-5.0); Sodium 137 mmol/L (137-145)
[2021-05-15 20:36] LABS: Prothrombin Time 13.1 Seconds (11.1-14.7)
[2021-05-15 20:37] LABS: Partial Thromboplastin Time 31.8 SECONDS (22.3-36.8)
[2021-05-15 20:45] LABS: NT Pro B Type Natriuretic Pept 1590 pg/mL (5-100); Troponin I < 0.012 ng/mL (0.000-0.034)
[2021-05-15 22:04] VITALS: O2SAT 98
--- NOTE | 2021-05-15 22:07 | ED.GENADULT ---
HPI - General Adult General Chief complaint: Shortness of Breath/Dyspnea Stated complaint: short of breath Time Seen by Provider: 05/15/21 21:41 History of Present Illness HPI narrative: Patient 31-year-old male who presents to the emergency department with chief complaint of shortness of breath. Patient reports he has history of IV drug use and was recently admitted at [facility] after he had a upper extremity cellulitis from shooting drugs and then was bacteremic. Patient states he stayed several days in the hospital and decided to leave the hospital before he had completed his full course of IV antibiotics they transferred him over to p.o. antibiotics and the patient states he was taking it for a few days then stopped taking it and then when he started feeling worse he decided to start taking them again. The patient states he is unsure of what antibiotic he is taking and states that he was is taking medication 3 times a day. Patient states that he has noticed since he has been home his legs have started swelling up has noticed that he has started having shortness of breath whenever he gets up and walks around. Patient does report also he has continued to use IV drugs Related Data Home Medications Medication Instructions Recorded Confirmed No Home Medications 11/02/19 11/02/19 Allergies Allergy/AdvReac Type Severity Reaction Status Date / Time No Known Allergies Allergy Verified 05/15/21 22:03 Review of Systems Review of Systems: A 10 system review of systems was completed on the patient and is negative except for what is stated in the HPI. Nursing and ancillary documentation was reviewed. PMFSH Past Medical History Medical History IV drug abuse Has regularly used IV methamphetamine and heroin for many years. Tobacco use Surgical History Surgical History H/O right knee surgery Family History Family History Grandparent Stomach cancer Grandparent Hypertension Grandparent Heart attack Social History Social History Social History: The patient lives in [place] with his girlfriend, Kely. Designates his mother, Pamela Dyson, as his surrogate decision maker and he wishes to be a full code. He has a 10-year-old son. He smokes about a pack of cigarettes per day and has for 15 years. He drinks alcohol very rarely. He uses IV methamphetamines and heroin as detailed above. Smoking packs per day: 1 Smoking cigarettes per day: 20.0 Years smoked: 15 Smoking pack-years: 15.00 Smoking status: Current every day smoker Tobacco type: cigarettes Substance use: current Substance use type: heroin and methamphetamine Other substance usage details: meth 3 days ago, heroin 10 days ago Gender identity (if verbalized by the patient): Male Spiritual care concerns: No Exam Narrative: GENERAL: Well-appearing, well-nourished, and in no acute distress. HEAD: Normocephalic, atraumatic. EYES: PERRLA and EOMI. ENT: Nares clear, no rhinorrhea or epistaxis. Mucous membranes moist. NECK: Supple. CHEST: Clear to auscultation. No respiratory distress. HEART: Regular rate and rhythm. Faint murmur heard. Normal peripheral pulses. ABDOMEN: Soft, nontender, nondistended, normal active bowel sounds. EXTREMITIES: Normal range of motion. 1+ edema. SKIN: Warm, dry, no rash. NEURO: No focal deficits. Alert and oriented x3. PSYCH: Normal mood and affect. Course Vital Signs Vital signs: Vital Signs Temperature 36.8 C 05/15/21 20:05 Pulse Rate 81 05/15/21 20:05 Respiratory Rate 18 05/15/21 20:05 Blood Pressure 158/99 H 05/15/21 20:05 Pulse Oximetry 98 05/15/21 20:05 Temperature 36.8 C 05/15/21 20:05 Pulse Rate 77 05/15/21 23:10 Respiratory Rate 16 05/15/21 23:10 Blood Pr
[2021-05-15 23:00] LABS: Alanine Aminotransferase 16 U/L (4-50); Albumin Level 4.5 g/dL (3.5-5.1); Alkaline Phosphatase 90 U/L (38-126); Aspartate Amino Transferase 32 U/L (17-59); Bilirubin,Total 0.6 mg/dL (0.2-1.3); Lactic Acid Reflex 0.6 mmol/L (0.7-2.1)
[2021-05-15 23:02] LABS: CRP 3.3 mg/dL (<1.0); Magnesium 2.4 mg/dL (1.6-2.3)
[2021-05-15 23:04] LABS: Add Urine Microscopic? YES; Appearance Urine Clear (Clear); Bilirubin Urine Negative (Negative); Blood Urine 3+ (Negative); Color Urine Straw (Yellow); Glucose Urine UA Negative (Negative); Ketones Urine Negative (Negative); Leukocyte Esterase Ur Negative LEU/UL (Negative); Mucus Urine Rare /lpf; Nitrate Urine Negative (Negative); Protein Urine Negative (Negative); Specific Grav Ur 1.008 (1.001-1.035); Urobilinogen Urine Negative mg/dL (<2.0); WBC Urine 0-3 /hpf
[2021-05-15 23:10] VITALS: BP 185/98; PULSE 77; RESP 16; O2SAT 98
[2021-05-15 23:12] LABS: Erythrocyte Sedimentation Rate 43 mm/hr (0-20)
[2021-05-15] MEDS: LORazepam INJ (*CRX) 2 MG/ML VIAL 0.5 MG IV PUSH (23:39)
[2021-05-16] VITALS (8 sets, daily range): BP systolic 164–185; BP diastolic 93–113; PULSE 55–90; RESP 16–20; TEMP 36.4–36.8; O2SAT 94–100; BMI 38.2
--- NOTE | 2021-05-16 02:24 | ADMGEN ---
This patient, Chris Waller, was admitted to 3 [facility] Surg Room 315-01. Patient/family oriented to hospital policies and general routines including ID bracelet, bed and alarms, visiting hours, pain management, procedures, bathroom and other care routines, personal items, smoking policy, room service/diet, and visiting hours. Information on how to activate the Rapid Response Team has been discussed. Patient/Family are encouraged to report perceived risks to care and to ask questions if they do not understand what they are told or what they should do.
[2021-05-16] MEDS: SODIUM CHLORIDE 0.9% IV 1,000 ML 125 ML IV CONT ×3 (02:52→22:20)
[2021-05-16] MEDS: methADONE HCL (*CRX) 10 MG TABLET 70 MG PO (12:38)
[2021-05-16] MEDS: hydrALAZINE HCL 20 MG/ML VIAL 10 MG IV PUSH (12:40)
--- NOTE | 2021-05-16 13:43 | PM.IMHP ---
H&P: HPI History of Present Illness Date/Time: 05/16/21 13:43 31-year-old male with IVDU recently left AMA from [facility] while he was being treated for pain and swelling of his left arm near an injection site with a red lines running to axilla. Patient reports he was told that he had a blood sickness . Patient remained hospitalized for 2 days prior to signing out against medical advice. He states that he got home and felt fine originally but subsequently developed fatigue, and awoke w acute onset of shortness of breath, so he sought medical attention here in our ER. SOB has resolved and patient is saturating well on room air. Medical records have been requested for [place]. Patient is under the care of a methadone clinic, this facility has been called to clarify his current methadone dosing 70 mg daily. since leaving [facility] patient does admit to continuing to use IV heroin. Chief Complaint: SOB Review of Systems Review of Systems: All systems reviewed & are unremarkable except as noted in HPI and below PMFSH Past Medical History Medical History IV drug abuse Has regularly used IV methamphetamine and heroin for many years. Marijuana smoker Tobacco use Surgical History Surgical History H/O right knee surgery Family History Family History Grandparent Stomach cancer Grandparent Hypertension Grandparent Heart attack Social History Social History Social History: The patient lives in [place] with his girlfriend, Kely. Designates his mother, Pamela Dyson, as his surrogate decision maker and he wishes to be a full code. He has a 10-year-old son. He smokes about a pack of cigarettes per day and has for 15 years. He drinks alcohol very rarely. He uses IV methamphetamines and heroin as detailed above. Smoking packs per day: 1 Smoking cigarettes per day: 20.0 Years smoked: 15 Smoking pack-years: 15.00 Smoking status: Current every day smoker Tobacco type: cigarettes Alcohol intake: former Substance use: current Substance use type: marijuana, heroin, amphetamines, opiates and IV drugs Other substance usage details: meth 3 days ago, heroin 10 days ago Gender identity (if verbalized by the patient): Male Spiritual care concerns: No Meds Home Medications and Allergies Home Medications Medication Instructions Recorded Confirmed Type No Home Medications 11/02/19 05/16/21 History Allergies Allergy/AdvReac Type Severity Reaction Status Date / Time No Known Allergies Allergy Verified 05/15/21 22:03 Vital Signs Vital Signs - 24 hr 05/15/21 20:05 05/15/21 22:04 05/15/21 23:10 Temperature 98.2 F Pulse Rate 81 77 Respiratory Rate 18 16 Blood Pressure 158/99 H 185/98 H Pulse Oximetry 98 98 98 05/16/21 02:10 05/16/21 04:00 05/16/21 08:00 Temperature 97.7 F 97.7 F 98.2 F Pulse Rate 71 60 85 Respiratory Rate 18 16 18 Blood Pressure 185/108 H 164/101 H 174/96 H Pulse Oximetry 98 94 98 05/16/21 12:00 Temperature Pulse Rate 90 Respiratory Rate Blood Pressure Pulse Oximetry Exam Narrative: GEN: NAD, AAOx3, cooperative HEENT: NCAT, MMM, EOMI Neck: no JVD Heart: S1S2 tachycardia Lungs: CTA B/l Abd: soft, NT, ND, bowel sounds normoactive Ext: moves all, no cyanosis, no clubbing, b/l hand and feet swelling Neuro: Cranial nerves intact, no focal neurological deficits appreciated Psych: Mood and affect congruent H&P: Results Labs Labs: Short CBC 05/15/21 Range/Units 20:12 WBC 10.7 H (4.5-10.0) K/mm3 Hgb 11.2 L (14.0-18.0) g/dL Hct 34.5 L (42.0-52.0) % Plt Count 240 (150-375) k/mm3 BMP 05/15/21 20:12 Sodium 137 Potassium 5.2 H Chloride 106 Carbon Dioxide 25 BUN 30 H D Creatinine 1.20
[2021-05-16 16:56] LABS: SARS-CoV-2 RNA PCR Negative
[2021-05-16] MEDS: cloNIDine HCL 0.1 MG TABLET PO ×2 (17:14→22:04)
[2021-05-16] MEDS: CALCIUM CARBONATE (TUMS) 500 MG (200 MG ELEMENTAL) PO (22:04)
[2021-05-16] MEDS: LORazepam (*CRX) 0.5 MG TABLET PO (22:04)
[2021-05-17] VITALS (12 sets, daily range): BP systolic 163–208; BP diastolic 76–114; PULSE 51–70; RESP 14–18; TEMP 36.4–36.9; O2SAT 96–99
[2021-05-17] MEDS: hydrALAZINE HCL 20 MG/ML VIAL 10 MG IV PUSH (03:11)
[2021-05-17] MEDS: ACETAMINOPHEN 325 MG TABLET 650 MG PO (03:12)
--- NOTE | 2021-05-17 03:27 | PC.NURSE ---
called Dr. Zelaya to inform him of patients blood pressure/headache/achiness. Pt said he stopped taking prescribed lisinopril because it was all better a few years ago... his pressure did not change with prn clonidine.. got one time dose of hydralyzine and will continue to monitor. Patient states he feels terrible and is extremely restless
--- NOTE | 2021-05-17 06:00 | ECHO_ITS ---
Patient Info Name: Chris Waller Age: 31 years : 1990 Gender: Male Ht: 69 in Wt: 258 lbs BSA: 2.44 m2 HR: 57 bpm BP: 208 / 114 mmHg Heart Rhythm: Sinus Rhythm Technical Quality: Good Exam Date: 05/17/2021 2:37 PM Exam Location: [facility] Pulmonary Patient Status: Inpatient Admit Date: 05/16/2021 Staff Ordering Physician: Jamison Cunningham MD Software Design Analyst: Cassia Frazier RDCS Attending Provider: Criss Sierra DO Referring Physician: Octavio ROBLES; Exam Type: CA echo doppler color flow Study Info Indications - IVDA, RECENT BACTEREMIA Complete two-dimensional, color flow and Doppler transthoracic echocardiogram is performed. Summary 1. Complete two-dimensional, color flow and Doppler transthoracic echocardiogram is performed. 2. Left ventricular chamber dimension is moderately enlarged. 3. Left ventricular systolic function is normal, estimated at 60-65%. 4. There is no increased left ventricular wall thickness. 5. The left ventricular diastolic function is grade II diastolic dysfunction. 6. There is trace mitral valve regurgitation. 7. There is no aortic valve stenosis. 8. There is mild tricuspid valve regurgitation. 9. No pulmonary hypertension, estimated pulmonary arterial systolic pressure is 31 mmHg. Left Ventricle Left ventricular chamber dimension is moderately enlarged. Left ventricular systolic function is normal, estimated at 60-65%. There is no increased left ventricular wall thickness. The left ventricular diastolic function is grade II diastolic dysfunction. Global longitudinal strain is normal at -19 %. Right Ventricle Right ventricular chamber dimension is normal. Right ventricular systolic function is normal. Left Atria Left atrial chamber dimension is mildly enlarged. Right Atria Right atrial chamber dimension is mildly enlarged. Aortic Valve The aortic valve is probable trileaflet. There is no aortic valve stenosis. There is no aortic valve regurgitation. Pulmonic Valve The pulmonic valve is normal. There is trace pulmonic regurgitation. Mitral Valve The mitral valve has normal leaflets. There is trace mitral valve regurgitation. Tricuspid Valve The tricuspid valve leaflets are normal. There is mild tricuspid valve regurgitation. No pulmonary hypertension, estimated pulmonary arterial systolic pressure is 31 mmHg. Pericardium/Pleural The pericardium appears normal. There is no pericardial effusion. Inferior Vena Cava Normal inferior vena cava with >50% collapse upon inspiration consistent with normal right atrial pressure, 5 mmHg. Aorta The aortic root size at the sinus of Valsalva is normal. Left Ventricular Outflow Tract Name Value Normal LVOT 2D LVOT Diameter 2.0 cm LVOT Doppler LVOT Peak Gradient 5 mmHg LVOT Mean Gradient 3 mmHg LVOT VTI 27 cm LVOT VTI/AV VTI Ratio 0.9 LVOT Stroke Volume 87 ml LVOT CO 6.6 l/min LVOT
[2021-05-17 06:12] LABS: Estimated CRCL calculation 108 ml/min; Estimated Glomerular Filt Rate > 60
[2021-05-17] MEDS: methADONE HCL (*CRX) 10 MG TABLET 70 MG PO (08:28)
[2021-05-17] MEDS: LORazepam (*CRX) 0.5 MG TABLET PO (08:28)
[2021-05-17] MEDS: cloNIDine HCL 0.1 MG TABLET PO ×2 (08:28→11:04)
[2021-05-17] MEDS: SODIUM CHLORIDE 0.9% IV 1,000 ML 125 ML IV CONT (08:29)
[2021-05-17] MEDS: ONDANSETRON INJ 4 MG/2 ML VIAL IV PUSH (09:13)
[2021-05-17 12:35] LABS: Vancomycin Trough 13.2 ug/mL (10.0-20.0)
--- NOTE | 2021-05-17 13:06 | PM.IMPN ---
Progress Note: A&P Assessment and Plan (1) Pneumonia: Qualifiers: Laterality: unspecified laterality Lung location: unspecified part of lung Pneumonia type: due to unspecified organism Qualified Code(s): J18.9 - Pneumonia, unspecified organism Code(s): J18.9 - Pneumonia, unspecified organism Status: Acute (2) IV drug abuse: Code(s): F19.10 - Other psychoactive substance abuse, uncomplicated Status: Acute (3) Tobacco use: Code(s): Z72.0 - Tobacco use Status: Acute (4) Hepatitis: Code(s): K75.9 - Inflammatory liver disease, unspecified Status: Acute Additional Plan admit to [facility] telemetry monitoring Regular diet zofran PRN Tylenol PRN Clonidine p.r.n. for blood pressure control And Ativan p.r.n. for agitation zosyn/vanc IVFs methadone 70mg QD blood cultures pending records from [place] pending supportive care LMWH 05/17/2021 Increase Ativan dosing Increase clonidine dosing Low-dose Nicorette gum Continue current medical therapy Supportive care Medical records still pending from [place] Subjective Date/time seen: 05/17/21 17:06 Patient reports that he had very elevated blood pressure overnight. Very concerned about it home and is in agreement stay in the hospital but feels very anxious. Patient is reassured. He is offered a nicotine patch reports that this makes him feel unwell he is in agreement to take a low-dose nicotine gum and 2 intermittently as needed for his withdrawal. Exam Narrative: GEN: NAD, AAOx3, cooperative HEENT: NCAT, MMM, EOMI Neck: no JVD Heart: S1S2 tachycardia Lungs: CTA B/l Abd: soft, NT, ND, bowel sounds normoactive Ext: moves all, no cyanosis, no clubbing, b/l hand and feet swelling Skin: Multiple tattoos no area of erythema over arms or legs consistent with cellulitis Neuro: Cranial nerves intact, no focal neurological deficits appreciated Psych: Mood and affect congruent Objective Data Vital Signs Vital Signs: Vital Signs - 24 hr 05/16/21 20:00 05/16/21 22:00 05/17/21 00:00 Temperature 97.6 F Pulse Rate 64 64 51 L Respiratory Rate 20 Blood Pressure 170/93 H Pulse Oximetry 100 05/17/21 03:02 05/17/21 04:00 05/17/21 07:19 Temperature Pulse Rate 64 60 Respiratory Rate Blood Pressure 208/114 H 177/76 H Pulse Oximetry 05/17/21 08:00 05/17/21 08:37 05/17/21 10:22 Temperature 97.8 F 98.4 F Pulse Rate 56 L 65 58 L Respiratory Rate 18 14 Blood Pressure 183/112 H 163/95 H Pulse Oximetry 99 96 05/17/21 12:00 05/17/21 14:00 05/17/21 16:00 Temperature 98.2 F Pulse Rate 62 70 65 Respiratory Rate 16 Blood Pressure 164/100 H Pulse Oximetry 99 Intake/Output Intake/Output: Intake & Output 05/14/21 05/15/21 05/16/21 05/17/21 23:59 23:59 23:59 23:59 Intake Total 50 5170 2080 Output Total 1350 1600 Balance 50 3820 480 Meds/Results Medications: Active Medications Generic Name Dose Route Start Last Admin Trade Name Rickyq PRN Reason Stop Dose Admin Acetaminophen 650 mg 05/17/21 03:01 05/17/21 03:12 Acetaminophen 325 Mg Tablet PO 650 mg Q6H PRN Administration Mild Pain (1-3) or Fever Calcium Carbonate 200 mg 05/16/21 21:28 05/16/21 22:04 Calcium Carbonate (Tums) 500 Mg (200 Mg Elemental) PO 200 mg Q8HR PRN Administration Indigestion Clonidine HCl 0.2 mg 05/17/21 10:38 05/17/21 15:22 Clonidine Hcl 0.2 Mg Tablet PO 0.2 mg TID PRN Administration Increased Blood Pressure Piperacillin/Tazobactam/Dextrose 3.375 gm in 50 mls @ 100 mls/hr 05/16/21 04:00 05/17/21 10:59 Zosyn 3.375 Gm/D5w 50ml Pm IVPB Infused Q6H CAT Infusion Vancomycin HCl 2,000 mg in 500 mls @ 250 mls/hr 05/17/21 14:00 05/17/21 14:30 Vancomycin 2,000 Mg/D5w 500 Ml IVPB 250 mls/hr Q12H CAT Administration Lorazepam 1 mg 05/17/21 16:50 Lorazepam (*Crx) 1 Mg Tablet PO TID PRN Anxiety M
--- NOTE | 2021-05-17 14:24 | PC.NURSE ---
On 05/17/21, the student, Martha ROSAS [facility], provided care and completed [facility] documentation on this patient. I have reviewed the student's documentation and agree with the findings.
[2021-05-17] MEDS: cloNIDine HCL 0.2 MG TABLET PO ×2 (15:22→21:04)
[2021-05-17] MEDS: LORazepam (*CRX) 1 MG TABLET PO (20:58)
[2021-05-18] VITALS (9 sets, daily range): BP systolic 163–166; BP diastolic 94–104; PULSE 45–70; RESP 12–18; TEMP 36.2–36.9; O2SAT 96–100
[2021-05-18 06:14] LABS: Basophils Absolute Auto 0.1 K/mm3 (0.0-0.1); Basophils Percent Auto 0.4 % (0.2-1.2); Eosinophils Absolute Auto 0.2 K/mm3 (0-0.3); Eosinophils Percent Auto 1.5 % (0-4.4); Hematocrit 34.2 % (42.0-52.0); Hemoglobin 10.9 g/dL (14.0-18.0); Immature Granulocyte Absolute 0.04 K/mm3 (0.00-0.031); Immature Granulocyte Percent A 0.3 % (0-0.5); Lymphocytes Percent Auto 19.3 % (18.3-44.2); Mean Corpuscular HGB Conc 31.9 g/dl (32-36); Mean Corpuscular Hemoglobin 26.9 pg (26-34); Mean Corpuscular Volume 84.4 fl (80-100); Mean Platelet Volume 8.8 fl (7.4-10.4); Monocytes Absolute Auto 1.2 K/mm3 (0.1-0.6); Monocytes Percent Auto 10.1 % (2.6-8.5); Neutrophils Absolute Auto 8.1 K/mm3 (1.3-6.7); Neutrophils Percent Auto 68.4 % (45.5-73.1); Platelet Count Result 250 k/mm3 (150-375); Red Blood Count 4.05 M/mm3 (4.6-6.20); Red Cell Distribution Width 14.1 % (11.5-14.5); White Blood Count 11.9 K/mm3 (4.5-10.0)
[2021-05-18 07:52] LABS: Alanine Aminotransferase 9 U/L (4-50); Albumin Level 3.3 g/dL (3.5-5.1); Alkaline Phosphatase 58 U/L (38-126); Anion Gap 12 mmol/L (8-16); Aspartate Amino Transferase 22 U/L (17-59); Bilirubin,Total 0.6 mg/dL (0.2-1.3); Blood Urea Nitrogen 14 mg/dL (9-20); Carbon Dioxide 18 mmol/L (22-30); Chloride 112 mmol/L (98-107); Creatine Kinase 60 U/L (55-170); Estimated CRCL calculation 81 ml/min; Estimated Glomerular Filt Rate 54; Glucose 97 mg/dL (65-110); Magnesium 1.9 mg/dL (1.6-2.3); Sodium 142 mmol/L (137-145)
[2021-05-18] MEDS: ONDANSETRON INJ 4 MG/2 ML VIAL IV PUSH ×2 (08:20→17:02)
[2021-05-18] MEDS: methADONE HCL (*CRX) 10 MG TABLET 70 MG PO (08:42)
[2021-05-18] MEDS: LORazepam (*CRX) 1 MG TABLET PO ×2 (08:45→17:04)
[2021-05-18] MEDS: SODIUM CHLORIDE 0.9% IV 1,000 ML 50 ML IV CONT (11:45)
[2021-05-18] MEDS: ACETAMINOPHEN 325 MG TABLET 650 MG PO (13:18)
--- NOTE | 2021-05-18 13:51 | PM.IMPN ---
Progress Note: A&P Assessment and Plan (1) Pneumonia: Qualifiers: Laterality: unspecified laterality Lung location: unspecified part of lung Pneumonia type: due to unspecified organism Qualified Code(s): J18.9 - Pneumonia, unspecified organism Code(s): J18.9 - Pneumonia, unspecified organism Status: Acute (2) IV drug abuse: Code(s): F19.10 - Other psychoactive substance abuse, uncomplicated Status: Acute (3) Tobacco use: Code(s): Z72.0 - Tobacco use Status: Acute (4) Hepatitis: Code(s): K75.9 - Inflammatory liver disease, unspecified Status: Acute Additional Plan admit to [facility] telemetry monitoring Regular diet zofran PRN Tylenol PRN Clonidine p.r.n. for blood pressure control And Ativan p.r.n. for agitation zosyn/vanc IVFs methadone 70mg QD blood cultures pending records from [place] pending supportive care LMWH 05/17/2021 Increase Ativan dosing Increase clonidine dosing Low-dose Nicorette gum Continue current medical therapy Supportive care Medical records still pending from [place] 05/18/2021 no left shift on labs, records pending from [place] BP not at goal and renal function acutely declined this am Zosyn to Cefepime NS low dose for poor PO intake hydralazine added PRN VS q 8hr -> q 6hrs episodes of unsustained bradycardia will decrease clonidine to 0.2mg PO TID PRN Subjective Date/time seen: 05/18/21 13:51 pt complains of nausea and hot flashes. one episode of vomiting this morning foamy saliva has not eating for a couple of days because of poor appetite Exam Narrative: GEN: NAD, AAOx3, cooperative HEENT: NCAT, MMM, EOMI Neck: no JVD Heart: S1S2 RRR Lungs: CTA B/l Abd: soft, NT, ND, bowel sounds normoactive Ext: moves all, no cyanosis, no clubbing, 1+ edema of feet and hands Objective Data Vital Signs Vital Signs: Vital Signs - 24 hr 05/17/21 14:00 05/17/21 16:00 05/17/21 20:00 Temperature 98.2 F Pulse Rate 70 65 58 L Respiratory Rate 16 Blood Pressure 164/100 H Pulse Oximetry 99 05/17/21 22:00 05/18/21 00:00 05/18/21 04:22 Temperature 97.6 F Pulse Rate 62 65 62 Respiratory Rate 18 Blood Pressure 169/112 H Pulse Oximetry 99 05/18/21 05:39 Temperature 98.4 F Pulse Rate 55 L Respiratory Rate 18 Blood Pressure 166/104 H Pulse Oximetry 96 Intake/Output Intake/Output: Intake & Output 05/15/21 05/16/21 05/17/21 05/18/21 23:59 23:59 23:59 23:59 Intake Total 50 5170 3800 1520 Output Total 1350 1600 600 Balance 50 3820 2200 920 Meds/Results Medications: Active Medications Generic Name Dose Route Start Last Admin Trade Name Freq PRN Reason Stop Dose Admin Acetaminophen 650 mg 05/17/21 03:01 05/18/21 13:18 Acetaminophen 325 Mg Tablet PO 650 mg Q6H PRN Administration Mild Pain (1-3) or Fever Calcium Carbonate 200 mg 05/16/21 21:28 05/16/21 22:04 Calcium Carbonate (Tums) 500 Mg (200 Mg Elemental) PO 200 mg Q8HR PRN Administration Indigestion Clonidine HCl 0.2 mg 05/18/21 13:47 Clonidine Hcl 0.2 Mg Tablet PO TID PRN Increased Blood Pressure Hydralazine HCl 10 mg 05/18/21 09:26 Hydralazine Hcl 20 Mg/Ml Vial IV PUSH Q8H PRN Blood Pressure - High Vancomycin HCl 2,000 mg in 500 mls @ 250 mls/hr 05/17/21 14:00 05/18/21 13:19 Vancomycin 2,000 Mg/D5w 500 Ml IVPB 250 mls/hr Q12H CAT Administration Sodium Chloride 1,000 mls @ 50 mls/hr 05/18/21 09:25 05/18/21 11:45 Normal Saline Iv IV CONT 50 mls/hr .Q20H CAT Administration Cefepime HCl 2 gm in 50 mls @ 100 mls/hr 05/18/21 12:00 05/18/21 11:46 Maxipime 2 Gm/D5w 50 Ml IVPB 100 mls/hr Q8HR CAT Administration Lorazepam 1 mg 05/17/21 16:50 05/18/21 08:45 Lorazepam (*Crx) 1 Mg Tablet PO 1 mg TID PRN Administration Anxiety Methadone HCl 70 mg 05/16/21 13:00 05/18/21 08:42 Methadone Hcl (*
[2021-05-18] MEDS: hydrALAZINE HCL 20 MG/ML VIAL 10 MG IV PUSH (14:17)
[2021-05-18] MEDS: cloNIDine HCL 0.2 MG TABLET PO (16:00)
[2021-05-18] MEDS: NIFEdipine 30 MG TAB.ER.24 PO (19:50)
[2021-05-19] VITALS (7 sets, daily range): BP systolic 144–167; BP diastolic 78–96; PULSE 63–89; RESP 12–20; TEMP 36.3–37.1; O2SAT 97–98
[2021-05-19] MEDS: LORazepam (*CRX) 1 MG TABLET PO ×4 (00:33→21:38)
[2021-05-19] MEDS: cloNIDine HCL 0.2 MG TABLET PO (00:33)
[2021-05-19] MEDS: CALCIUM CARBONATE (TUMS) 500 MG (200 MG ELEMENTAL) PO (00:33)
[2021-05-19 01:22] LABS: Vancomycin Trough 25.2 ug/mL (10.0-20.0)
[2021-05-19 06:43] LABS: Basophils Absolute Auto 0.1 K/mm3 (0.0-0.1); Basophils Percent Auto 0.4 % (0.2-1.2); Eosinophils Absolute Auto 0.2 K/mm3 (0-0.3); Eosinophils Percent Auto 1.4 % (0-4.4); Hematocrit 33.1 % (42.0-52.0); Hemoglobin 10.9 g/dL (14.0-18.0); Immature Granulocyte Absolute 0.05 K/mm3 (0.00-0.031); Immature Granulocyte Percent A 0.4 % (0-0.5); Lymphocytes Absolute Auto 2.24 K/mm3 (0.9-3.2); Lymphocytes Percent Auto 17.2 % (18.3-44.2); Mean Corpuscular HGB Conc 32.9 g/dl (32-36); Mean Corpuscular Volume 82.1 fl (80-100); Mean Platelet Volume 8.7 fl (7.4-10.4); Monocytes Percent Auto 7.5 % (2.6-8.5); Neutrophils Absolute Auto 9.5 K/mm3 (1.3-6.7); Neutrophils Percent Auto 73.1 % (45.5-73.1); Platelet Count Result 300 k/mm3 (150-375); Red Blood Count 4.03 M/mm3 (4.6-6.20)
[2021-05-19 07:05] LABS: Anion Gap 10 mmol/L (8-16); Blood Urea Nitrogen 11 mg/dL (9-20); Calcium 8.9 mg/dL (8.4-10.2); Carbon Dioxide 22 mmol/L (22-30); Chloride 109 mmol/L (98-107); Estimated CRCL calculation 81 ml/min; Estimated Glomerular Filt Rate 54; Glucose 90 mg/dL (65-110); Magnesium 1.7 mg/dL (1.6-2.3); Potassium 3.5 mmol/L (3.4-5.0); Sodium 141 mmol/L (137-145)
[2021-05-19] MEDS: methADONE HCL (*CRX) 10 MG TABLET 70 MG PO (08:51)
--- NOTE | 2021-05-19 09:53 | PM.IMPN ---
Progress Note: A&P Assessment and Plan (1) Pneumonia: Qualifiers: Laterality: unspecified laterality Lung location: unspecified part of lung Pneumonia type: due to unspecified organism Qualified Code(s): J18.9 - Pneumonia, unspecified organism Code(s): J18.9 - Pneumonia, unspecified organism Status: Acute (2) IV drug abuse: Code(s): F19.10 - Other psychoactive substance abuse, uncomplicated Status: Acute (3) Tobacco use: Code(s): Z72.0 - Tobacco use Status: Acute (4) Grade II diastolic dysfunction: Code(s): I51.9 - Heart disease, unspecified Status: Acute (5) Marijuana smoker: Code(s): F12.90 - Cannabis use, unspecified, uncomplicated Status: Chronic (6) Hypertension: Code(s): I10 - Essential (primary) hypertension Status: Acute Additional Plan admit to [facility] telemetry monitoring Regular diet zofran PRN Tylenol PRN Clonidine p.r.n. for blood pressure control And Ativan p.r.n. for agitation zosyn/vanc IVFs methadone 70mg QD blood cultures pending records from [place] pending supportive care LMWH 05/17/2021 Increase Ativan dosing Increase clonidine dosing Low-dose Nicorette gum Continue current medical therapy Supportive care Medical records still pending from [place] 05/18/2021 no left shift on labs, records pending from [place] BP not at goal and renal function acutely declined this am Zosyn to Cefepime NS low dose for poor PO intake hydralazine added PRN VS q 8hr -> q 6hrs episodes of unsustained bradycardia will decrease clonidine to 0.2mg PO TID PRN 05/19/21 on Vanc Cefepime rising WBCs remains afebrile SEA Cr 1.5 BP improved w Nifedipine 30 -> increase to BID w low dose clonidine and hydralazine PRN coverage withdrawal symptoms improving cont current care Records from [facility] reviewed patient was admitted for left upper extremity cellulitis no positive blood cultures or findings of infective endocarditis during that visit. possible dc tomorrow Subjective Date/time seen: 05/19/21 09:53 pt feeling better today, withdrawal symptoms abating. still w elevated bp, pt admits he was previously on Lisinopril for HTN but that it had resolved when he stopped consuming ICE Exam Narrative: GEN: NAD, AAOx3, cooperative HEENT: NCAT, MMM, EOMI Neck: no JVD Lungs: symmetric chest rise, no use of accessory muscles Abd: soft, NT, ND, bowel sounds normoactive Ext: moves all, no cyanosis, no clubbing, 1+ edema of feet and hands Objective Data Vital Signs Vital Signs: Vital Signs - 24 hr 05/18/21 12:00 05/18/21 13:45 05/18/21 16:00 Temperature 97.2 F L Pulse Rate 45 L 64 70 Respiratory Rate 12 Blood Pressure 163/100 H Pulse Oximetry 100 05/18/21 17:45 05/18/21 20:00 05/19/21 00:00 Temperature 97.3 F L 98.8 F Pulse Rate 69 57 L 77 Respiratory Rate 18 20 Blood Pressure 166/94 H 167/92 H Pulse Oximetry 100 98 05/19/21 04:00 05/19/21 05:54 Temperature 98.1 F Pulse Rate 66 80 Respiratory Rate 20 Blood Pressure 144/78 H Pulse Oximetry 97 Intake/Output Intake/Output: Intake & Output 05/16/21 05/17/21 05/18/21 05/19/21 23:59 23:59 23:59 23:59 Intake Total 5170 3800 2240 800 Output Total 1350 1600 1400 Balance 3820 2200 840 800 Meds/Results Medications: Active Medications Generic Name Dose Route Start Last Admin Trade Name Freq PRN Reason Stop Dose Admin Acetaminophen 650 mg 05/17/21 03:01 05/18/21 13:18 Acetaminophen 325 Mg Tablet PO 650 mg Q6H PRN Administration Mild Pain (1-3) or Fever Calcium Carbonate 200 mg 05/16/21 21:28 05/19/21 00:33 Calcium Carbonate (Tums) 500 Mg (200 Mg Elemental) PO 200 mg Q8HR PRN Administration Indigestion Clonidine HCl 0.1 mg 05/19/21 09:52 Clonidine Hcl 0.1 Mg Tablet PO TID PRN Increased Blood Pressure Hydralazine HCl 10 mg 05/18/21 09:26
[2021-05-19] MEDS: NIFEdipine 30 MG TAB.ER.24 PO ×2 (13:38→18:30)
[2021-05-19] MEDS: cloNIDine HCL 0.1 MG TABLET PO (14:48)
[2021-05-19] MEDS: SODIUM CHLORIDE 0.9% IV 1,000 ML 60 ML IV CONT (17:52)
[2021-05-19] MEDS: hydrALAZINE HCL 20 MG/ML VIAL 10 MG IV PUSH (17:53)
[2021-05-20] VITALS: BP 156/94; PULSE 86; RESP 20; TEMP 36.8; O2SAT 98
[2021-05-20 05:44] VITALS: BP 153/92; PULSE 88; RESP 20; TEMP 36.7; O2SAT 98
[2021-05-20] MEDS: ONDANSETRON INJ 4 MG/2 ML VIAL IV PUSH (06:02)
[2021-05-20] MEDS: ACETAMINOPHEN 325 MG TABLET 650 MG PO (06:02)
[2021-05-20 06:24] LABS: Basophils Absolute Auto 0.1 K/mm3 (0.0-0.1); Basophils Percent Auto 0.6 % (0.2-1.2); Eosinophils Absolute Auto 0.2 K/mm3 (0-0.3); Eosinophils Percent Auto 1.4 % (0-4.4); Hematocrit 37.9 % (42.0-52.0); Hemoglobin 12.6 g/dL (14.0-18.0); Immature Granulocyte Absolute 0.04 K/mm3 (0.00-0.031); Immature Granulocyte Percent A 0.3 % (0-0.5); Lymphocytes Absolute Auto 2.54 K/mm3 (0.9-3.2); Lymphocytes Percent Auto 21.5 % (18.3-44.2); Mean Corpuscular HGB Conc 33.2 g/dl (32-36); Mean Corpuscular Hemoglobin 27.3 pg (26-34); Mean Corpuscular Volume 82.2 fl (80-100); Mean Platelet Volume 8.2 fl (7.4-10.4); Monocytes Absolute Auto 0.9 K/mm3 (0.1-0.6); Neutrophils Percent Auto 68.2 % (45.5-73.1); Platelet Count Result 304 k/mm3 (150-375); Red Blood Count 4.61 M/mm3 (4.6-6.20); Red Cell Distribution Width 14.3 % (11.5-14.5); White Blood Count 11.8 K/mm3 (4.5-10.0)
[2021-05-20 06:38] LABS: Alanine Aminotransferase 9 U/L (4-50); Alkaline Phosphatase 64 U/L (38-126); Anion Gap 11 mmol/L (8-16); Aspartate Amino Transferase 24 U/L (17-59); Bilirubin,Total 0.8 mg/dL (0.2-1.3); Blood Urea Nitrogen 10 mg/dL (9-20); Calcium 9.2 mg/dL (8.4-10.2); Carbon Dioxide 24 mmol/L (22-30); Chloride 106 mmol/L (98-107); Creatine Kinase 41 U/L (55-170); Estimated CRCL calculation 92 ml/min; Estimated Glomerular Filt Rate > 60; Glucose 97 mg/dL (65-110); Magnesium 1.6 mg/dL (1.6-2.3); Potassium 3.5 mmol/L (3.4-5.0); Sodium 141 mmol/L (137-145)
--- NOTE | 2021-05-20 08:38 | PM.IMPN ---
Progress Note: A&P Assessment and Plan (1) Pneumonia: Qualifiers: Laterality: unspecified laterality Lung location: unspecified part of lung Pneumonia type: due to unspecified organism Qualified Code(s): J18.9 - Pneumonia, unspecified organism Code(s): J18.9 - Pneumonia, unspecified organism Status: Acute (2) IV drug abuse: Code(s): F19.10 - Other psychoactive substance abuse, uncomplicated Status: Acute (3) Tobacco use: Code(s): Z72.0 - Tobacco use Status: Acute (4) Grade II diastolic dysfunction: Code(s): I51.9 - Heart disease, unspecified Status: Acute (5) Marijuana smoker: Code(s): F12.90 - Cannabis use, unspecified, uncomplicated Status: Chronic (6) Hypertension: Code(s): I10 - Essential (primary) hypertension Status: Acute Additional Plan admit to [facility] telemetry monitoring Regular diet zofran PRN Tylenol PRN Clonidine p.r.n. for blood pressure control And Ativan p.r.n. for agitation zosyn/vanc IVFs methadone 70mg QD blood cultures pending records from [place] pending supportive care LMWH 05/17/2021 Increase Ativan dosing Increase clonidine dosing Low-dose Nicorette gum Continue current medical therapy Supportive care Medical records still pending from [place] 05/18/2021 no left shift on labs, records pending from [place] BP not at goal and renal function acutely declined this am Zosyn to Cefepime NS low dose for poor PO intake hydralazine added PRN VS q 8hr -> q 6hrs episodes of unsustained bradycardia will decrease clonidine to 0.2mg PO TID PRN 05/19/21 on Vanc Cefepime rising WBCs remains afebrile SEA Cr 1.5 BP improved w Nifedipine 30 -> increase to BID w low dose clonidine and hydralazine PRN coverage withdrawal symptoms improving cont current care Records from [facility] reviewed patient was admitted for left upper extremity cellulitis no positive blood cultures or findings of infective endocarditis during that visit. possible dc tomorrow Subjective Date/time seen: 05/20/21 08:38 Exam Narrative: GEN: NAD, AAOx3, cooperative HEENT: NCAT, MMM, EOMI Neck: no JVD Lungs: symmetric chest rise, no use of accessory muscles Abd: soft, NT, ND, bowel sounds normoactive Ext: moves all, no cyanosis, no clubbing, 1+ edema of feet and hands Objective Data Vital Signs Vital Signs: Vital Signs - 24 hr 05/19/21 12:00 05/19/21 16:00 05/19/21 17:48 Temperature 97.3 F L 98.2 F Pulse Rate 88 63 80 Respiratory Rate 18 12 Blood Pressure 151/93 H 154/96 H Pulse Oximetry 97 98 05/20/21 00:00 05/20/21 05:44 Temperature 98.2 F 98.1 F Pulse Rate 86 88 Respiratory Rate 20 20 Blood Pressure 156/94 H 153/92 H Pulse Oximetry 98 98 Intake/Output Intake/Output: Intake & Output 05/17/21 05/18/21 05/19/21 05/20/21 23:59 23:59 23:59 23:59 Intake Total 3800 2240 2170 1550 Output Total 1600 1400 3000 Balance 2200 840 2170 -1450 Meds/Results Medications: Active Medications Generic Name Dose Route Start Last Admin Trade Name Freq PRN Reason Stop Dose Admin Acetaminophen 650 mg 05/17/21 03:01 05/20/21 06:02 Acetaminophen 325 Mg Tablet PO 650 mg Q6H PRN Administration Mild Pain (1-3) or Fever Calcium Carbonate 200 mg 05/16/21 21:28 05/19/21 00:33 Calcium Carbonate (Tums) 500 Mg (200 Mg Elemental) PO 200 mg Q8HR PRN Administration Indigestion Clonidine HCl 0.1 mg 05/19/21 09:52 05/19/21 14:48 Clonidine Hcl 0.1 Mg Tablet PO 0.1 mg TID PRN Administration Increased Blood Pressure Hydralazine HCl 10 mg 05/18/21 09:26 05/19/21 17:53 Hydralazine Hcl 20 Mg/Ml Vial IV PUSH 10 mg Q8H PRN Administration Blood Pressure - High Cefepime HCl 2 gm in 50 mls @ 100 mls/hr 05/18/21 12:00 05/20/21 05:58 Maxipime 2 Gm/D5w 50 Ml IVPB Infused Q8HR CAT Infusion Vancomycin HCl 2,000 mg in 500 mls @ 250
[2021-05-20] MEDS: NIFEdipine 30 MG TAB.ER.24 60 MG PO (09:43)
[2021-05-20] MEDS: methADONE HCL (*CRX) 10 MG TABLET 70 MG PO (09:47)
--- NOTE | 2021-05-20 09:59 | PM.DS ---
DS: Admitting Diagnosis Discharge Date 05/20/21 Admitting Diagnosis (1) Pneumonia: Qualifiers: Laterality: unspecified laterality Lung location: unspecified part of lung Pneumonia type: due to unspecified organism Qualified Code(s): J18.9 - Pneumonia, unspecified organism Code(s): J18.9 - Pneumonia, unspecified organism Status: Acute (2) IV drug abuse: Code(s): F19.10 - Other psychoactive substance abuse, uncomplicated Status: Acute (3) Tobacco use: Code(s): Z72.0 - Tobacco use Status: Acute (4) Hepatitis: Code(s): K75.9 - Inflammatory liver disease, unspecified Status: Acute Additional Plan admit to [facility] telemetry monitoring Regular diet zofran PRN Tylenol PRN Clonidine p.r.n. for blood pressure control And Ativan p.r.n. for agitation zosyn/vanc IVFs methadone 70mg QD blood cultures pending records from [place] pending supportive care [facility] DS: Discharge Diagnosis Discharge Diagnosis (1) Hypertension: Code(s): I10 - Essential (primary) hypertension Status: Acute (2) Marijuana smoker: Code(s): F12.90 - Cannabis use, unspecified, uncomplicated Status: Chronic (3) Grade II diastolic dysfunction: Code(s): I51.9 - Heart disease, unspecified Status: Acute (4) Pneumonia: Qualifiers: Laterality: unspecified laterality Lung location: unspecified part of lung Pneumonia type: due to unspecified organism Qualified Code(s): J18.9 - Pneumonia, unspecified organism Code(s): J18.9 - Pneumonia, unspecified organism Status: Ruled-out (5) Tobacco use: Code(s): Z72.0 - Tobacco use Status: Acute (6) IV drug abuse: Code(s): F19.10 - Other psychoactive substance abuse, uncomplicated Status: Acute (7) Hepatitis: Code(s): K75.9 - Inflammatory liver disease, unspecified Status: Acute (8) Elevated LFTs: Code(s): R94.5 - Abnormal results of liver function studies Status: Acute (9) Anxiety: Code(s): F41.9 - Anxiety disorder, unspecified Status: Acute DS: Summary Hospital Course Reason for hospitalization: 05/20/21 Hospital Course: 31-year-old male admitted to the hospital stay stating that he felt unwell after recently leaving [facility] from [facility] where he was being treated for acute cellulitis of the left upper extremity associated with IVDU. Blood cultures and echocardiogram were performed here and did not reveal any concerning findings other than grade 2 diastolic heart failure. Hospitalization was complicated with SEA, acute on chronic hypertension, and symptoms of withdrawal which were treated with clonidine, nifedipine, Ativan, re-initiation of methadone 70 mg (previously was on 110 mg), and IV fluids. At time of discharge patient was out of withdrawals and very stable. His blood pressure was improved with nifedipine 60 mg p.o. q.day, and his renal function was trending to baseline. Patient was counseled extensively on the need to refrain from IV drug use or other consumption of illicit or illegal drugs. He was advised to buy a blood pressure cuff and monitor his blood pressure and to be compliant with his antihypertensive regimen. Additionally, he was given indications to follow-up with his primary care physician for ongoing care and continue his previous abx Rx to for cellulitis to completion. Time Spent with Patient Time attestation: Total time spent providing and/or coordinating discharge services: DS: Data Data Completed and Pending Labs on day of discharge: Labs from last 24 hours 05/20/21 05/20/21 06:10 06:10 WBC 11.8 H RBC 4.61 Hgb 12.6 L Hct 37.9 L MCV 82.2 MCH 27.3 MCHC 33.2 RDW 14.3 Plt Count 304 MPV 8.2 Immature Gran % (Auto) 0.3 Neut % (Auto) 68.2 Lymph % (Auto) 21.5 [place] % (Auto) 8.0 Eos % (Auto) 1.4 Baso % (Auto) 0.6 Lymph # (Auto) 2.54 [place] # (Auto) 0.9 H Eo
--- NOTE | 2021-05-20 10:08 | PC.NURSE ---
Patient belongings including cigarettes, gum remover, and screwdriver returned to patient upon discharge.
== END 2021-05-20 10:08 | disposition home or self-care (01) | DRG 194 ==
LOC: ANHED 05-16 00:31 → ANH3MEDSUR 05-16 06:13
PROVIDERS: Emergency Medicine; Admitting Provider Internal Medicine; Emergency Provider Emergency Medicine; PCP Emergency Medicine; Visit Provider Hospitalist
DX: I11.0 Hypertensive heart disease with heart failure (principal); I50.30 Unspecified diastolic (congestive) heart failure; N17.9 Acute kidney failure, unspecified; Z20.822 Contact with and (suspected) exposure to COVID-19; F19.10 Other psychoactive substance abuse, uncomplicated; F12.90 Cannabis use, unspecified, uncomplicated; F17.210 Nicotine dependence, cigarettes, uncomplicated; K75.9 Inflammatory liver disease, unspecified; F41.9 Anxiety disorder, unspecified; R94.5 Abnormal results of liver function studies
CPT/HCPCS: 36415; 71046; 71275; 80048; 80053; 80076; 80202; 81001; 82550; 82565; 83605; 83735; 83880; 84484; 85025; 85610; 85652; 85730; 86140; 87040; 93005; 93306; 96361; 96365; 96366; 96367; 96375; 99285; A9270; C9803; G0378; G0379; J0360; J0692; J2060; J2405; J2543; J3370; J7030; Q9967; U0003; U0005

== ENCOUNTER 2022-08-08 15:08 | Emergency (ER) | payer OTHER, SELFPAY ==
--- NOTE | ~2022-08-08 | XR_ITS ---
Clinical Indication: Shortness of breath AP and lateral views of the chest: Comparison: 05/15/2021 Findings: The lungs are clear, without evidence of focal consolidation or pleural effusion. Cardiome diastinal silhouette is within normal limits. Bones and soft tissues are unremarkable. Impression: Normal chest. Reviewed, dictated and finalized at location [] [facility] Impression: Normal chest.
--- NOTE | ~2022-08-08 | CT_ITS ---
Non-contrast CT scan of the Abdomen and Pelvis Clinical indication: Flank pain, hematuria Technique: 5 mm axial scans were obtained through the abdomen and pelvis without intravenous or oral contrast. Dose reduction technique was used on this scan by utilizing automated exposure control and iterative reconstruction technique. The dose-length product (DLP) was 1400.86 mGy-cm. COMPARISON: 11/02/2019 Findings: Images through the lung bases reveal no abnormalities. There is no evidence of renal or ureteral calculi. The kidneys and the ureters are nondilated. The liver, spleen, pancreas, gallbladder, and adrenals appear normal. There is no aortic aneurysm. There is no evidence of bowel obstruction. No right lower quadrant inflammatory changes to suggest ap pendicitis. Images through the pelvis were performed. There is no evidence of ascites or lymphadenopathy. Urinary bladder unremarkable. Prostate gland and seminal vesicles are unremarkable. Impression: Unremarkable exam. Reviewed, dictated and finalized at location [] CUTTER Impression: Unremarkable exam.
--- NOTE | ~2022-08-08 | US_ITS ---
EXAMINATION: US abdomen limited DATE: 08/08/2022 16:38 INDICATION: Abdominal pain TECHNIQUE: Multiple grayscale and Doppler ultrasound images of the abdomen were obtained. COMPARISON: 11/02/2019 FINDINGS: The region of the pancreas is obscured by shadowing bowel gas. Liver has normal echogenicity and cont our, with a smooth surface. No liver lesion identified. No intrahepatic biliary duct dilation suspect ed. Portal venous flow was seen in the hepatopetal, normal direction and has normal Doppler waveform. The gallbladder is decompressed with a couple echogenic foci within the bladder wall suggesting pili omyomatosis. No evident shadowing gallstones. Common bile duct measures 4-5 mm diameter which is norm al. Sonographic Pagan sign was reported as negative by the oxygen therapy technician. Visualized portion the proxi mal inferior vena cava is normal. Visualized upper pole of the right kidney demonstrates normal conto ur and echogenicity with no hydronephrosis. IMPRESSION: 1. Decompressed gallbladder with a couple tiny intramural echogenic foci suggesting adenomyomatosis. Otherwise normal right upper quadrant ultrasound. Reviewed, dictated and finalized at location A. LVERIZER IMPRESSION: 1. Decompressed gallbladder with a couple tiny intramural echogenic foci sugges ting adenomyomatosis. Otherwise normal right upper quadrant ultrasound.
[2022-08-08 15:37] VITALS: BP 138/95; PULSE 98; RESP 20; TEMP 36.9; O2SAT 96
--- NOTE | 2022-08-08 15:43 | ECG_ITS ---
Measurements Intervals [place] Rate: 87 P: 40 TX: 163 QRS: -29 QRSD: 108 T: 24 QT: 364 QTc: 438 Interpretive Statements SINUS RHYTHM BORDERLINE LEFT AXIS DEVIATION [QRS AXIS < -20] COMPARED TO ECG 05/15/2021 20:16:42 NO SIGNIFICANT CHANGES Electronically Signed On 08-08-2022 16:13:00 [employer] by López Aguirre M.D.
[2022-08-08 15:59] LABS: Basophils Percent Auto 0.3 % (0.2-1.2); Eosinophils Absolute Auto 0.1 K/mm3 (0-0.3); Eosinophils Percent Auto 0.9 % (0-4.4); Hematocrit 42.4 % (42.0-52.0); Hemoglobin 14.1 g/dL (14.0-18.0); Immature Granulocyte Absolute 0.03 K/mm3 (0.00-0.031); Immature Granulocyte Percent A 0.3 % (0-0.5); Lymphocytes Absolute Auto 1.83 K/mm3 (0.9-3.2); Lymphocytes Percent Auto 15.4 % (18.3-44.2); Mean Corpuscular HGB Conc 33.3 g/dl (32-36); Mean Corpuscular Hemoglobin 27.3 pg (26-34); Mean Platelet Volume 8.5 fl (7.4-10.4); Monocytes Percent Auto 8.5 % (2.6-8.5); Neutrophils Absolute Auto 8.9 K/mm3 (1.3-6.7); Neutrophils Percent Auto 74.6 % (45.5-73.1); Platelet Count Result 226 k/mm3 (150-375); Red Blood Count 5.17 M/mm3 (4.6-6.20); Red Cell Distribution Width 14.1 % (11.5-14.5); White Blood Count 11.9 K/mm3 (4.5-10.0)
[2022-08-08 16:08] LABS: Alanine Aminotransferase 23 U/L (6-50); Albumin Level 4.8 g/dL (3.5-5.1); Alkaline Phosphatase 68 U/L (38-126); Anion Gap 7 mmol/L (8-16); Aspartate Amino Transferase 38 U/L (17-59); Bilirubin,Total 0.6 mg/dL (0.2-1.3); Blood Urea Nitrogen 13 mg/dL (9-20); Calcium 9.2 mg/dL (8.4-10.2); Carbon Dioxide 29 mmol/L (22-30); Chloride 99 mmol/L (98-107); Estimated CRCL calculation 130 ml/min; Estimated Glomerular Filt Rate > 60; Glucose 90 mg/dL (65-110); Lipase 51 U/L (23-300); Potassium 3.9 mmol/L (3.4-5.0); Sodium 135 mmol/L (137-145)
[2022-08-08 17:16] LABS: Add Urine Microscopic? NO; Appearance Urine Clear (Clear); Bilirubin Urine Negative (Negative); Blood Urine Negative (Negative); Color Urine Light Yellow (Yellow); Glucose Urine UA Negative (Negative); Ketones Urine Negative (Negative); Leukocyte Esterase Ur Negative LEU/UL (Negative); Nitrate Urine Negative (Negative); Protein Urine Negative (Negative); Specific Grav Ur 1.025 (1.001-1.035)
--- NOTE | 2022-08-08 17:50 | ED.GENADULT ---
HPI - General Adult General Chief complaint: Abdominal Pain Stated complaint: back pain, radiates to front Time Seen by Provider: 08/08/22 16:19 History of Present Illness HPI narrative: 32-year-old male history of hypertension, anxiety, diastolic dysfunction, IV drug use presents to the emergency room for evaluation of midthoracic back pain. Patient states that he was lifting about a heavy objects yesterday he began experiencing pain to his mid back. Patient tried some street fentanyl and states it improved his pain. States pain radiates into his abdomen. Denies any low back pain. Denies any peripheral neuropathy or radiculopathy. Denies any saddle anesthesia. Denies any changes or difficulties with bowel or bladder habits. Related Data Allergies Allergy/AdvReac Type Severity Reaction Status Date / Time No Known Allergies Allergy Verified 05/15/21 22:03 Review of Systems Review of Systems: CONSTITUTIONAL: Denies fever, chills, or sweats. EYES: Denies visual changes, redness, or discharge. ENT: Denies rhinorrhea, congestion, sore throat, or otalgia. CARDIOVASCULAR: Denies chest pain, palpitations, or edema. RESPIRATORY: Denies cough or dyspnea. GASTROINTESTINAL: Denies abdominal pain, nausea, vomiting, or diarrhea. GENITOURINARY: Denies dysuria or hematuria. SKIN: Denies rash or itching. MUSCULOSKELETAL: Reports mid back pain NEUROLOGIC: Denies headache, numbness, dizziness, or weakness. PSYCHIATRIC: Denies anxiety or depression. [facility] Past Medical History Medical History Hypertension IV drug abuse Has regularly used IV methamphetamine fentanyl and heroin for many years. and ICE Marijuana smoker Tobacco use Surgical History Surgical History H/O right knee surgery Family History Family History Grandparent Stomach cancer Grandparent Hypertension Grandparent Heart attack Social History Social History Social History: The patient lives in [place] with his girlfriend, Kely. Designates his mother, Pamela Dyson, as his surrogate decision maker and he wishes to be a full code. He has a 10-year-old son. He smokes about a pack of cigarettes per day and has for 15 years. He drinks alcohol very rarely. He uses IV methamphetamines and heroin as detailed above. Smoking packs per day: 1 Smoking cigarettes per day: 20.0 Years smoked: 15 Smoking pack-years: 15.00 Smoking status: Current every day smoker Tobacco type: cigarettes Alcohol intake: former Substance use: current Substance use type: marijuana, heroin, amphetamines, opiates and IV drugs Other substance usage details: meth 3 days ago, heroin 10 days ago Gender identity (if verbalized by the patient): Male Spiritual care concerns: No Exam Narrative: GENERAL: Well-appearing, well-nourished, no physical limitations HEAD: Normocephalic, atraumatic. EYES: Conjunctivae normal, PERRLA and EOMI. CHEST: Clear to auscultation. No respiratory distress. No wheezes rales or rhonchi. HEART: Regular rate and rhythm. No murmur heard. Normal peripheral pulses. ABDOMEN: Soft, nontender, nondistended, normal active bowel sounds. BACK: No midline cervical/thoracic/lumbar tenderness, step-offs, bony abnormality; FROM. Muscle spasms noted to bilateral latissimus dorsi muscles EXTREMITIES: Normal range of motion. No edema. No clubbing or cyanosis SKIN: Warm, dry, no rash. No noted wounds NEURO: No focal deficits. Alert and oriented x3. MAEW. CN's II-XI intact bilaterally, normal gait PSYCH: Cooperative. Normal mood and affect. Course Vital Signs Vital signs: Vital Signs Temperature 36.9 C 08/08/22 15:37 Pulse Rate 98 08/08/22 15:37 Respiratory Rate 20 08/08/22 15:37 Blood Pressure 138/95 H 08/08/22 15:37 Pulse Oximetry 96 08/08/22 15:37 Temperature
[2022-08-08 18:03] VITALS: BP 126/80; PULSE 80; RESP 16; TEMP 36.8; O2SAT 100
== END 2022-08-08 18:05 | disposition home or self-care (01) ==
PROVIDERS: Emergency Medicine; Emergency Provider Nurse Practitioner Family; PCP Emergency Medicine
DX: S29.012A Strain of muscle and tendon of back wall of thorax, initial encounter (principal); I10 Essential (primary) hypertension; F17.210 Nicotine dependence, cigarettes, uncomplicated; R94.31 Abnormal electrocardiogram [ECG] [EKG]; X50.0XXA Overexertion from strenuous movement or load, initial encounter
CPT/HCPCS: 36415; 71046; 74176; 76705; 80053; 81003; 83690; 85025; 93005; 99284

== ENCOUNTER 2023-08-14 05:02 | Emergency (ER) | payer OTHER, SELFPAY ==
[2023-08-14] VITALS (8 sets, daily range): BP systolic 108–121; BP diastolic 63–80; PULSE 40–72; RESP 15–22; TEMP 36.3; O2SAT 96
--- NOTE | ~2023-08-14 | XR_ITS ---
Right ankle Technique: AP, oblique, and lateral views were obtained. Clinical History: Pain and swelling Findings: There is an acute, oblique, nearly nondisplaced fracture of the lateral malleolus, at and j ust proximal to the level of the ankle mortise. No other fracture or dislocation seen. Ankle mortise and other visualized joint spaces are preserved. Soft tissues are otherwise unremarkable. Impression: Acute, oblique, essentially nondisplaced fracture of the lateral malleolus/distal fibula, as detailed above. Reviewed, dictated and finalized at location M. 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
--- NOTE | ~2023-08-14 | XR_ITS ---
Portable chest x-ray Comparison: 08/08/2022 Clinical History: Syncope Findings: Lungs are clear, without focal consolidation or pleural effusion. Cardiomediastinal silho uette is stable. Bones and soft tissues are unremarkable. Impression: Normal chest. Reviewed, dictated and finalized at [facility]. 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
--- NOTE | 2023-08-14 05:18 | ECG_ITS ---
Measurements Intervals [place] Rate: 54 P: 47 [place]: 168 QRS: -2 QRSD: 112 T: 24 QT: 421 QTc: 401 Interpretive Statements SINUS BRADYCARDIA OTHERWISE NORMAL ECG COMPARED TO ECG 08/08/2022 15:47:50 HEART RATE IS NOW REDUCED Electronically Signed On 08-14-2023 17:40:48 INBOUND CUSTOMER SERVICE AGENT by Harpal Clark M.D.
[2023-08-14 05:27] LABS: Basophils Percent Auto 0.4 % (0.2-1.2); Eosinophils Percent Auto 0.4 % (0-4.4); Hematocrit 43.7 % (42.0-52.0); Hemoglobin 14.2 g/dL (14.0-18.0); Immature Granulocyte Absolute 0.02 K/mm3 (0.00-0.031); Immature Granulocyte Percent A 0.2 % (0-0.5); Lymphocytes Absolute Auto 2.96 K/mm3 (0.9-3.2); Lymphocytes Percent Auto 35.7 % (18.3-44.2); Mean Corpuscular HGB Conc 32.5 g/dl (32-36); Mean Corpuscular Hemoglobin 25.7 pg (26-34); Mean Platelet Volume 8.9 fl (7.4-10.4); Monocytes Absolute Auto 0.5 K/mm3 (0.1-0.6); Monocytes Percent Auto 5.9 % (2.6-8.5); Neutrophils Absolute Auto 4.8 K/mm3 (1.3-6.7); Neutrophils Percent Auto 57.4 % (45.5-73.1); Platelet Count Result 251 k/mm3 (150-375); Red Blood Count 5.53 M/mm3 (4.6-6.20); Red Cell Distribution Width 14.6 % (11.5-14.5); White Blood Count 8.3 K/mm3 (4.5-10.0)
[2023-08-14 05:38] LABS: Alanine Aminotransferase 16 U/L (6-50); Albumin Level 4.6 g/dL (3.5-5.1); Alkaline Phosphatase 73 U/L (38-126); Anion Gap 13 mmol/L (8-16); Aspartate Amino Transferase 23 U/L (17-59); Bilirubin,Total 1.4 mg/dL (0.2-1.3); Blood Urea Nitrogen 19 mg/dL (9-20); Calcium 9.9 mg/dL (8.4-10.2); Carbon Dioxide 23 mmol/L (22-30); Chloride 102 mmol/L (98-107); Estimated CRCL calculation 95 ml/min; Estimated Glomerular Filt Rate > 60; Glucose 138 mg/dL (65-110); Potassium 3.7 mmol/L (3.4-5.0); Sodium 138 mmol/L (137-145)
--- NOTE | 2023-08-14 05:40 | ED.SYNCOPE ---
HPI - Syncope General Chief Complaint: Syncope Stated Complaint: syncope Time Seen by Provider: 08/14/23 05:27 Source: patient Limitations: no limitations History of Present Illness HPI narrative: Patient is a 33-year-old male presents to the emergency department complaining of a syncopal episode that occurred just prior to arrival. Patient states he is currently in a detox center for final for the past 4 days has been taking multiple new medications at this start him on including gabapentin, clonidine, Seroquel and he has been having difficulty sleeping so he took a 2nd Seroquel and then after taking all these medications she had an episode of nonbloody watery diarrhea when he went to go clean herself up and stood up she got lightheaded and passed out. Patient denies any history of passing out. Patient denies history of seizures. Patient denies biting his tongue, urinary incontinence, stool incontinence. Patient admits to mild right ankle pain since the syncopal episode. Patient denies vomiting, nausea, chest pain, shortness of breath, palpitations, abdominal pain, diaphoresis, numbness, weakness, headache, vision changes, sore throat, nasal congestion, rash, fever, recent illness. Patient admits to being dehydrated stand easily had 4 cups of water over the past 4 days and his urine has been dark. Patient denies dysuria. Patient believes that this is all related to him taking multiple medications and being dehydrated. Related Data Allergies Allergy/AdvReac Type Severity Reaction Status Date / Time No Known Allergies Allergy Verified 05/15/21 22:03 Review of Systems Review of Systems: A 10 system review of systems was completed on the patient and is negative except for what is stated in the HPI. Nursing and ancillary documentation was reviewed. 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 and ICE Marijuana smoker Tobacco use Surgical History Surgical History H/O right knee surgery Family History Family History Grandparent Stomach cancer Grandparent Hypertension Grandparent Heart attack Social History Social History Social History: The patient lives in [place] with his girlfriend, Kely. Designates his mother, Pamela Dyson, as his surrogate decision maker and he wishes to be a full code. He has a 10-year-old son. He smokes about a pack of cigarettes per day and has for 15 years. He drinks alcohol very rarely. He uses IV methamphetamines and heroin as detailed above. Smoking packs per day: 1 Smoking cigarettes per day: 20.0 Years smoked: 15 Smoking pack-years: 15.00 Smoking status: Current every day smoker Tobacco type: cigarettes Alcohol intake: former Substance use: current Substance use type: marijuana, heroin, amphetamines, opiates and IV drugs Other substance usage details: meth 3 days ago, heroin 10 days ago Gender identity (if verbalized by the patient): Male Spiritual care concerns: No Comments At time of signature, I have reviewed and agree with nursing past medical, surgical, social and family history unless otherwise noted. Please see the nursing chart for further information. There is no relevant family history pertinent to the presenting complaint. Exam Narrative: CONST: No acute distress. HENMT: Head is normocephalic and atraumatic. Dry mucous membranes. No posterior oropharynx erythema. EYES: No conjunctival icterus, injection, or pallor. PERRL. NECK: No meningeal signs. RESP: Able to speak in full sentences. Normal respiratory effort. CTAB. CARDIO: Regular rate. Regular rhythm. 2+ DP and radial pulses bilaterally. GI: Nondistended. No tenderness to palpation. Soft. : No CVA tendern
[2023-08-14] MEDS: ACETAMINOPHEN 500 MG TABLET 1000 MG PO (06:09)
[2023-08-14] MEDS: SODIUM CHLORIDE 0.9% IV 1,000 ML 999 ML IV CONT ×2 (06:09→07:07)
[2023-08-14 06:42] LABS: Magnesium 1.9 mg/dL (1.6-2.3)
--- NOTE | 2023-08-14 07:10 | PC.NURSE ---
Report to ISIAH Hunt
== END 2023-08-14 08:01 ==
PROVIDERS: Emergency Provider Student in an Organized Health Care Education/Training Program; PCP Emergency Medicine
DX: R55 Syncope and collapse (principal); S82.64XA Nondisplaced fracture of lateral malleolus of right fibula, initial encounter for closed fracture; T43.595A Adverse effect of other antipsychotics and neuroleptics, initial encounter; T42.6X5A Adverse effect of other antiepileptic and sedative-hypnotic drugs, initial encounter; T46.5X5A Adverse effect of other antihypertensive drugs, initial encounter; I10 Essential (primary) hypertension; F17.210 Nicotine dependence, cigarettes, uncomplicated; F11.10 Opioid abuse, uncomplicated; F15.10 Other stimulant abuse, uncomplicated; R00.1 Bradycardia, unspecified; W18.39XA Other fall on same level, initial encounter
CPT/HCPCS: 29405; 29515; 36415; 71045; 73610; 80053; 83735; 85025; 93005; 96360; 96361; 99284; A9270; J7030

== ENCOUNTER 2023-09-08 14:14 | Outpatient (CLI) | payer OTHER, SELFPAY ==
--- NOTE | ~2023-09-08 | XR_ITS ---
XR ankle RT min 3V DATE: 09/08/2023 14:33 INDICATION: Nondisplaced fracture of lateral malleolus TECHNIQUE: 4 Views COMPARISON: 08/14/2023 right ankle FINDINGS: Again noted is an oblique virtually nondisplaced fracture of the lateral malleolus. There i s no interval change in position or alignment. Mild periosteal healing new bone formation is noted. The medial malleolus and posterior malleolus are intact and the ankle mortise appears preserved. IMPRESSION: Healing virtually nondisplaced lateral malleolar fracture Reviewed, dictated and finalized at location B. TIC PLANT WORKER
== END 2023-09-08 14:15 | disposition home or self-care (01) ==
LOC: ANHIMG 14:17
PROVIDERS: PCP Emergency Medicine; Visit Provider Orthopaedic Surgery
DX: S82.64XD Nondisplaced fracture of lateral malleolus of right fibula, subsequent encounter for closed fracture with routine healing (principal); X58.XXXD Exposure to other specified factors, subsequent encounter
CPT/HCPCS: 73610